=== PATIENT | male | born 1960 | race Caucasian/White ===

== ENCOUNTER 2019-12-10 17:39 | Outpatient (CLI) | payer MEDICARE, MEDICAID, SELFPAY ==
--- NOTE | ~2019-12-10 | CT_ITS ---
EXAMINATION: CT lung screening DATE: 12/10/2019 18:20 INDICATION: Personal history of nicotine dependence. Lung cancer screening. TECHNIQUE: Computed tomography (CT) of the chest was performed without intravenous contrast. The dose -length product was 78.57 mGy-cm. Automated exposure control and iterative reconstruction technique w ere employed. COMPARISON: Chest x-ray dated 06/24/2016 FINDINGS: No mediastinal lymphadenopathy. There is atherosclerosis. Heart size normal. No significant pleural or pericardial effusion. There is moderate-severe emphysema. There are a few small scattered calcified granulomas in the lung parenchyma. There is bilateral lower lobe atelectasis. There is a 3 mm right lower lobe nodule, not clearly calcified, image 94. Mild wedge compression deformities of T 10-T12 vertebra, likely chronic. No osteolytic or osteoblastic lesions are identified. IMPRESSION: 1. Lung-RADS category 2: Benign appearance or behavior. Continue annual screening with noncontrast lo w-dose chest CT in 12 months. Reviewed, dictated and finalized at location A. STS' MODEL IMPRESSION: 1. Lung-RADS category 2: Benign appearance or behavior. Continue annual screeni ng with noncontrast low-dose chest CT in 12 months.
== END 2019-12-10 17:40 | disposition home or self-care (01) ==
PROVIDERS: PCP Internal Medicine; Visit Provider Nurse Practitioner
DX: Z09 Encounter for follow-up examination after completed treatment for conditions other than malignant neoplasm (principal); Z12.2 Encounter for screening for malignant neoplasm of respiratory organs; Z87.891 Personal history of nicotine dependence
CPT/HCPCS: G0297

== ENCOUNTER 2019-12-21 10:28 | Outpatient (CLI) | payer MEDICARE, MEDICAID, SELFPAY ==
[2019-12-21 11:02] LABS: Hemoglobin 15.8 g/dL (14.0-18.0); Mean Corpuscular HGB Conc 32.2 g/dl (32-36); Mean Corpuscular Hemoglobin 30.8 pg (26-34); Mean Corpuscular Volume 95.5 fl (80-100); Mean Platelet Volume 9.8 fl (7.4-10.4); Platelet Count Result 301 k/mm3 (150-375); Red Blood Count 5.13 M/mm3 (4.6-6.20); Red Cell Distribution Width 11.9 % (11.5-14.5); White Blood Count 6.8 K/mm3 (4.5-10.0)
[2019-12-21 11:42] LABS: Alanine Aminotransferase 11 U/L (4-50); Albumin Level 4.3 g/dL (3.5-5.1); Alkaline Phosphatase 93 U/L (38-126); Aspartate Amino Transferase 17 U/L (17-59); Bilirubin,Total 0.5 mg/dL (0.2-1.3); Blood Urea Nitrogen 17 mg/dL (9-20); Calcium 9.8 mg/dL (8.4-10.2); Carbon Dioxide 30 mmol/L (22-30); Chloride 97 mmol/L (98-107); Cholesterol 176 mg/dL (0-200); Estimated Glomerular Filt Rate > 60; Glucose 103 mg/dL (75-110); HDL Direct 56 mg/dL; Potassium 4.6 mmol/L (3.4-5.0); Sodium 138 mmol/L (137-145); Triglycerides 120 mg/dL (<150)
[2019-12-21 11:55] LABS: LDL Cholesterol Direct 97 mg/dL
[2019-12-21 12:15] LABS: Free T4 Free Thyroxine 0.83 ng/mL (0.78-2.19)
== END 2019-12-21 10:29 | disposition home or self-care (01) ==
PROVIDERS: PCP Internal Medicine; Visit Provider Nurse Practitioner
DX: I10 Essential (primary) hypertension (principal); Z79.899 Other long term (current) drug therapy; Z12.5 Encounter for screening for malignant neoplasm of prostate
CPT/HCPCS: 36415; 80053; 80061; 84153; 84439; 84443; 85027; G0103

== ENCOUNTER 2020-07-24 15:30 | Outpatient (RCR) | payer MEDICARE, MEDICAID, SELFPAY ==
--- NOTE | 2020-06-26 17:13 | PTOPEVAL ---
PHYSICAL THERAPY EVALUATION AND PLAN OF CARE Thank you for referring Michael Stewart to [facility].? The patient is scheduled to be seen for therapy?2x/week for 4 weeks. Please review, sign, date and return this plan of care BETTIE. I agree with and certify that the following plan of care is medically necessary. Referring Physician Date Attending Provider: Minh Bustillos, DO Evaluation Outpatient Past Medical History Cardiovascular History Hx Hypertension Yes Respiratory History Hx Chronic Obstructive Pulmonary Disease Yes (COPD) Diagnosis bilateral shoulder pain, decreased ROM Onset 8 months ago Subjective Information Don is here today with 8 Query Text:As Reported By Patient/ months worth of pain in the Family left shoulder that is prevneting him from moving the arm very well. The right was hurting, but he was on steriods which helped both shoulders significantly. He has difficulty and pain reaching behind his back and raising the arms out to the side. Has difficulty lying on either shoulder. Self Report Pain Assessment Bilateral Shoulder(s) Reported Pain Level 4 Pain Description Aching,Sharp Pain Frequency Chronic,Continuous Lowest Pain Intensity 2 Scapular/ Shoulder Range of Motion Left Shoulder Flexion - Active 132 Shoulder Abduction - Active 80 Shoulder Medial Rotation - Active left PSIS Query Text:Reach Behind the Back Scapular/Shoulder Range of Motion Bony Restriction,Muscle Length Limitations Restriction Right Shoulder Flexion - Active 137 Shoulder Abduction - Active 70 Shoulder Medial Rotation - Active sacrum Query Text:Reach Behind the Back Scapular/Shoulder Range of Motion Bony Restriction,Muscle Length Limitations Restriction Scapular/Shoulder Bilateral Shoulder Flexion Strength 3 Fair Shoulder Abduction Strength 3- Fair - Shoulder Medial Rotation Strength 4- Good - Shoulder Lateral Rotation Strength 3+ Fair + Shoulder Strength Comments left shoulder more tender to internal rotation and ext. rot . MMT; right shoulder more tender to flexion and abduction MMT. Posture Head/C-Spine Posture Forward Head Thoracic Spine Posture Increased Kyphosis Thorax Posture Barrel Chested Lumbar
--- NOTE | 2020-07-05 10:20 | PCPTNOTE ---
Patient called & cancelled scheduled appointment this date due to car not working.
--- NOTE | 2020-07-13 11:28 | PCPTNOTE ---
Patient called & cancelled scheduled appointment this date due to illness.
--- NOTE | 2020-07-24 15:46 | PTOPEVAL ---
PHYSICAL THERAPY DISCHARGE NOTE Thank you for referring Michael Stewart to [facility].? Please review, sign, date and return this plan of care BETTIE. I agree with and certify that the following plan of care is medically necessary. Referring Physician Date Attending Provider: Minh Bustillos, Discharge Diagnosis bilateral shoulder pain, decreased ROM Onset 8 months ago Subjective Information Abilio reports today that his Query Text:As Reported By Patient/ shoulder pain is 90% gone. It Family only hurts when he moves it the wrong way or jerks the shoulders. Self Report Pain Assessment Bilateral Shoulder(s) Reported Pain Level 2 Pain Description Aching Pain Frequency Chronic,Continuous Scapular/ Shoulder Range of Motion Left Shoulder Flexion - Active 162 Shoulder Abduction - Active 170 Shoulder Medial Rotation - Active L1 Query Text:Reach Behind the Back Scapular/Shoulder Range of Motion Bony Restriction,Muscle Length Limitations Restriction Right Shoulder Flexion - Active 156 Shoulder Abduction - Active 165 Shoulder Medial Rotation - Active L1 Query Text:Reach Behind the Back Scapular/Shoulder Range of Motion Bony Restriction,Muscle Length Limitations Restriction Upper Extremity Muscle Strength Testing Scapular/Shoulder Bilateral Shoulder Flexion Strength 4+ Good + Shoulder Abduction Strength 4- Good - Shoulder Medial Rotation Strength 4+ Good + Shoulder Lateral Rotation Strength 4+ Good + Shoulder Strength Comments reports a small twinge with MMT, but not bad Posture Sitting Position Posture Evaluation View Anterior Head/C-Spine Posture Forward Head Thoracic Spine Posture Increased Kyphosis Thorax Posture Barrel Chested Lumbar Spine Posture Flexed Shoulder Posture (L) Rounded,(R) Rounded,(L) Elevated,(R) Elevated Scapula Posture (L) Neutral,(R) Neutral Additional Posture Comments better able to sit up right without UE support indicating improved postural strength PT Clinical Summary Michael is a 59 yo male participating in outpatient physical therapy with bilateral shoulder pain. Today Abilio presents WNL bilateral shoulder ROM and improved functional ability. His strength is also significantly
== END 2020-07-25 14:22 | disposition home or self-care (01) ==
LOC: ANHPT 15:30
PROVIDERS: PCP Internal Medicine; Visit Provider Internal Medicine
DX: M25.511 Pain in right shoulder (principal); M25.512 Pain in left shoulder
CPT/HCPCS: 97110; 97140; 97161

== ENCOUNTER 2021-04-14 09:33 | Outpatient (CLI) | payer MEDICARE, MEDICAID, SELFPAY ==
[2021-04-14 10:05] LABS: Alanine Aminotransferase 11 U/L (4-50); Alkaline Phosphatase 84 U/L (38-126); Anion Gap 6 mmol/L (8-16); Aspartate Amino Transferase 20 U/L (17-59); Bilirubin,Total 0.4 mg/dL (0.2-1.3); Blood Urea Nitrogen 14 mg/dL (9-20); Calcium 9.3 mg/dL (8.4-10.2); Carbon Dioxide 32 mmol/L (22-30); Chloride 101 mmol/L (98-107); Cholesterol 191 mg/dL (0-200); Estimated Glomerular Filt Rate > 60; Glucose 102 mg/dL (75-110); HDL Direct 69 mg/dL; Potassium 4.5 mmol/L (3.4-5.0); Sodium 139 mmol/L (137-145); Triglycerides 91 mg/dL (<150)
[2021-04-14 10:16] LABS: LDL Cholesterol Direct 86 mg/dL
== END 2021-04-14 09:34 | disposition home or self-care (01) ==
PROVIDERS: PCP Internal Medicine; Visit Provider Nurse Practitioner
DX: Z13.6 Encounter for screening for cardiovascular disorders (principal); F32.9 Major depressive disorder, single episode, unspecified; Z13.220 Encounter for screening for lipoid disorders
CPT/HCPCS: 36415; 80053; 80061; 84443

== ENCOUNTER 2021-11-05 16:47 | Outpatient (CLI) | payer OTHER, SELFPAY ==
[2021-11-05 18:47] LABS: Alanine Aminotransferase 13 U/L (4-50); Albumin Level 4.3 g/dL (3.5-5.1); Alkaline Phosphatase 96 U/L (38-126); Anion Gap 7 mmol/L (8-16); Aspartate Amino Transferase 20 U/L (17-59); Bilirubin,Total 0.4 mg/dL (0.2-1.3); Blood Urea Nitrogen 16 mg/dL (9-20); Calcium 9.5 mg/dL (8.4-10.2); Carbon Dioxide 31 mmol/L (22-30); Chloride 96 mmol/L (98-107); Estimated Glomerular Filt Rate > 60; Glucose 108 mg/dL (65-110); Potassium 4.7 mmol/L (3.4-5.0); Sodium 134 mmol/L (137-145)
[2021-11-05 19:17] LABS: Prostate Specific Antigen 8.2 ng/mL (< OR = 4.0)
== END 2021-11-05 16:48 | disposition home or self-care (01) ==
PROVIDERS: PCP Internal Medicine; Visit Provider Nurse Practitioner
DX: I10 Essential (primary) hypertension (principal); Z12.5 Encounter for screening for malignant neoplasm of prostate
CPT/HCPCS: 36415; 80053; 84153; G0103

== ENCOUNTER 2022-04-03 14:09 | Outpatient (CLI) | payer OTHER, SELFPAY ==
--- NOTE | ~2022-04-03 | CT_ITS ---
EXAMINATION:CT lung screening DATE: 04/03/2022 14:26 INDICATION: Personal history of nicotine dependence. Current smoker with 47 pack year history. TECHNIQUE: Computed tomography (CT) of the chest was performed without intravenous contrast. Automate d exposure control and iterative reconstruction technique were employed. The dose-length product (DLP ) was 73.53 mGy-cm. COMPARISON: Chest CT 12/10/2019 FINDINGS: There is severe emphysema. Calcified bilateral lung nodules and calcified right hilar lymph nodes are consistent with old granulomatous disease. No pleural effusion. The heart size is normal. There are coronary artery calcifications. No pericardial effusion. There is mild atrophy of left kidn ey. There is a chronic compression fracture of T12. There is mild chronic anterior wedging of multipl e vertebral bodies. IMPRESSION: 1. Lung-RADS category 1: Negative. Continue annual screening with noncontrast low-dose chest CT in 12 months. Reviewed, dictated and finalized at location A. IMPRESSION: 1. Lung-RADS category 1: Negative. Continue annual screening with noncontrast l ow-dose chest CT in 12 months.
== END 2022-04-03 14:10 | disposition home or self-care (01) ==
PROVIDERS: PCP Internal Medicine; Visit Provider Internal Medicine
DX: Z12.2 Encounter for screening for malignant neoplasm of respiratory organs (principal); Z87.891 Personal history of nicotine dependence
CPT/HCPCS: 71271

== ENCOUNTER 2022-06-27 10:48 | Outpatient (CLI) | payer OTHER, SELFPAY ==
[2022-06-27 11:23] LABS: Alanine Aminotransferase 14 U/L (6-50); Albumin Level 4.3 g/dL (3.5-5.1); Alkaline Phosphatase 95 U/L (38-126); Anion Gap 9 mmol/L (8-16); Aspartate Amino Transferase 19 U/L (17-59); Bilirubin,Total 0.4 mg/dL (0.2-1.3); Blood Urea Nitrogen 20 mg/dL (9-20); Calcium 9.5 mg/dL (8.4-10.2); Carbon Dioxide 31 mmol/L (22-30); Chloride 95 mmol/L (98-107); Cholesterol 187 mg/dL (0-200); Estimated Glomerular Filt Rate 51; Glucose 94 mg/dL (65-110); HDL Direct 63 mg/dL; Potassium 4.5 mmol/L (3.4-5.0); Sodium 135 mmol/L (137-145); Triglycerides 132 mg/dL (<150)
[2022-06-27 11:34] LABS: LDL Cholesterol Direct 93 mg/dL
== END 2022-06-27 10:49 | disposition home or self-care (01) ==
PROVIDERS: PCP Internal Medicine; Visit Provider Internal Medicine
DX: I10 Essential (primary) hypertension (principal); Z79.899 Other long term (current) drug therapy; Z13.220 Encounter for screening for lipoid disorders
CPT/HCPCS: 36415; 80053; 80061

== ENCOUNTER 2022-10-14 05:38 | Inpatient (IN) | payer OTHER, SELFPAY ==
[2022-10-14] VITALS (24 sets, daily range): BP systolic 108–201; BP diastolic 71–114; PULSE 60–104; RESP 14–116; TEMP 36.4–37.2; O2SAT 89–98; BMI 18.5
--- NOTE | ~2022-10-14 | XR_ITS ---
EXAMINATION: XR chest 1V portable DATE: 10/14/2022 06:55 INDICATION: Shortness of breath TECHNIQUE: frontal view of the chest was obtained. COMPARISON: Chest radiograph dated 06/24/2016 FINDINGS: Emphysema. New patchy airspace opacities in the right mid to lower lung zones and at the left lung ba se. No pleural effusion or pneumothorax. IMPRESSION: 1. New patchy airspace opacities in the right mid to lower left lower lung zones which could represen t pneumonia or atelectasis. 2. Emphysema. Reviewed, dictated and finalized at location A. HERIZATION TECHNICIAN IMPRESSION: 1. New patchy airspace opacities in the right mid to lower left lower lung zone s which could represent pneumonia or atelectasis. 2. Emphysema.
--- NOTE | 2022-10-14 05:50 | ECG_ITS ---
Measurements Intervals [place] Rate: 94 P: 150 SD: 131 QRS: -27 QRSD: 69 T: 149 QT: 328 QTc: 411 Interpretive Statements POSSIBLE ECTOPIC ATRIAL RHYTHM LEFT ATRIAL ENLARGEMENT [-0.15mV P-WAVE IN V1/V2] LEAD II MALFUNCTION MODERATE T-WAVE ABNORMALITY, CONSIDER LATERAL ISCHEMIA [-0.1+ mV T-WAVE IN I/aVL/V5/V6] NO PREVIOUS ECG AVAILABLE FOR COMPARISON Electronically Signed On 10-14-2022 11:27:48 PROFESSOR OF PSYCHOLOGY by Oracio Aguila M.D.
--- NOTE | 2022-10-14 05:52 | ED.GENADULT ---
HPI - General Adult General Chief complaint: Shortness of Breath/Dyspnea Stated complaint: SOB Time Seen by Provider: 10/14/22 05:46 History of Present Illness HPI narrative: Patient 62-year-old gentleman who presents to Emergency Department with a chief complaint of shortness of breath. Patient reports he has history of COPD but has not required oxygen therapy at home and reports no prior intubations the patient states that over the last several days has been having increasing shortness of breath cough that has been productive of white sputum. The patient reports that a another individual in the household is tested positive on Friday for COVID-19. Patient reports has been wheezing a lot and reports that tonight things got significantly worse and he called EMS. Patient was found to be hypoxic and required oxygen therapy as well as breathing treatments and received 125 mg of Solu-Medrol enroute to the emergency department Related Data Allergies Allergy/AdvReac Type Severity Reaction Status Date / Time No Known Allergies Allergy Verified 10/14/22 05:43 Review of Systems Review of Systems: A 10 system review of systems was completed on the patient and is negative except for what is stated in the HPI. Nursing and ancillary documentation was reviewed. [facility] Past Medical History Medical History Enlarged prostate Screening for cardiovascular condition Screening for colon cancer Screening for lipid disorders Family History Family History Mother Diabetes mellitus Family history of multiple sclerosis Hypertension Family history of diabetes mellitus in first degree relative Father Family history of primary malignant neoplasm of liver Patient's father is Sibling Hypertension Family history of chronic obstructive pulmonary disease Social History Social History Smoking packs per day: 0.5 Smoking cigarettes per day: 10.0 Years smoked: 40 Smoking pack-years: 20.00 Smoking status: Current every day smoker (Less than 1/2 ppd) Tobacco type: cigarettes Second hand tobacco smoke exposure: Yes Alcohol intake: never Substance use: current Substance use type: marijuana Exam Narrative: GENERAL: Well-appearing, well-nourished, and in no acute distress. HEAD: Normocephalic, atraumatic. EYES: PERRLA and EOMI. ENT: Nares clear, no rhinorrhea or epistaxis. Mucous membranes moist. NECK: Supple. CHEST: Wheezes to auscultation. No respiratory distress. Currently on nasal cannula oxygen HEART: Regular rate and rhythm. No murmur heard. Normal peripheral pulses. ABDOMEN: Soft, nontender, nondistended, normal active bowel sounds. EXTREMITIES: Normal range of motion. No edema. SKIN: Warm, dry, no rash. NEURO: No focal deficits. Alert and oriented x3. PSYCH: Normal mood and affect. Course Course Emergency Course: The patient reports he is feeling much better after receiving the steroids and breathing treatment by EMS. Currently the patient is still on nasal cannula oxygen. Vital Signs Vital signs: Vital Signs Temperature 37.1 C 10/14/22 05:38 Pulse Rate 104 H 10/14/22 05:38 Respiratory Rate 26 H 10/14/22 05:38 Blood Pressure 201/114 H 10/14/22 05:38 Pulse Oximetry 93 10/14/22 05:38 Oxygen Delivery Room Air 10/14/22 05:38 Temperature 37.1 C 10/14/22 05:38 Pulse Rate 97 10/14/22 05:44 Respiratory Rate 26 H 10/14/22 05:38 Blood Pressure 201/114 H 10/14/22 05:38 Pulse Oximetry 92 10/14/22 05:44 Oxygen Delivery Room Air 10/14/22 05:44 Medical Decision Making Vital Signs Vital Signs: Vital Signs Temperature 37.1 C 10/14/22 05:38 Pulse Rate 104 H 10/14/22 05:38 Respiratory Rate 26 H 10/14/22 05:38 Blood Pressure 201/114 H 10/14/22 05:38 Pulse Oxim
[2022-10-14 06:16] LABS: Basophils Absolute Auto 0.1 K/mm3 (0.0-0.1); Basophils Percent Auto 0.8 % (0.2-1.2); Eosinophils Absolute Auto 0.1 K/mm3 (0-0.3); Eosinophils Percent Auto 1.3 % (0-4.4); Hematocrit 47.3 % (42.0-52.0); Hemoglobin 14.9 g/dL (14.0-18.0); Immature Granulocyte Absolute 0.03 K/mm3 (0.00-0.031); Immature Granulocyte Percent A 0.4 % (0-0.5); Lymphocytes Absolute Auto 1.45 K/mm3 (0.9-3.2); Lymphocytes Percent Auto 18.6 % (18.3-44.2); Mean Corpuscular HGB Conc 31.5 g/dl (32-36); Mean Corpuscular Hemoglobin 30.3 pg (26-34); Mean Corpuscular Volume 96.3 fl (80-100); Mean Platelet Volume 9.3 fl (7.4-10.4); Monocytes Absolute Auto 0.8 K/mm3 (0.1-0.6); Monocytes Percent Auto 10.5 % (2.6-8.5); Neutrophils Absolute Auto 5.4 K/mm3 (1.3-6.7); Neutrophils Percent Auto 68.4 % (45.5-73.1); Platelet Count Result 320 k/mm3 (150-375); Red Blood Count 4.91 M/mm3 (4.6-6.20); Red Cell Distribution Width 12.8 % (11.5-14.5); White Blood Count 7.8 K/mm3 (4.5-10.0)
[2022-10-14] MEDS: ALBUTEROL SULFATE NEB 2.5 MG/3 ML INH 5 MG INHALATION ×4 (06:16→20:11)
[2022-10-14] MEDS: IPRATROPIUM BR 0.02% INH SOLN 0.5 MG/2.5 ML VIAL INHALATION ×4 (06:17→20:12)
[2022-10-14 06:25] LABS: Alanine Aminotransferase 15 U/L (6-50); Albumin Level 4.1 g/dL (3.5-5.1); Alkaline Phosphatase 104 U/L (38-126); Anion Gap 7 mmol/L (8-16); Aspartate Amino Transferase 20 U/L (17-59); Bilirubin,Total 0.3 mg/dL (0.2-1.3); Blood Urea Nitrogen 18 mg/dL (9-20); Calcium 9.2 mg/dL (8.4-10.2); Carbon Dioxide 33 mmol/L (22-30); Chloride 96 mmol/L (98-107); Estimated CRCL calculation 45 ml/min; Estimated Glomerular Filt Rate > 60; Glucose 126 mg/dL (65-110); Magnesium 1.8 mg/dL (1.6-2.3); Potassium 5.3 mmol/L (3.4-5.0); Prothrombin Time 12.6 Seconds (11.1-14.7); Sodium 136 mmol/L (137-145)
[2022-10-14 06:36] LABS: NT Pro B Type Natriuretic Pept 111 pg/mL (5-100); Troponin I < 0.012 ng/mL (0.000-0.034)
[2022-10-14 06:43] LABS: Appearance Urine Clear (Clear); Bilirubin Urine Negative (Negative); Blood Urine Trace-intact (Negative); Color Urine Yellow (Yellow); Glucose Urine UA Negative (Negative); Ketones Urine Negative (Negative); Leukocyte Esterase Ur Negative LEU/UL (Negative); Nitrate Urine Negative (Negative); Protein Urine Negative (Negative); Specific Grav Ur 1.025 (1.001-1.035)
[2022-10-14 06:46] LABS: Bacteria Urine Trace /hpf; Mucus Urine Rare /lpf; RBC Urine 0-2 /hpf (0-2); Squamous Epithelial Cell Urine Rare /hpf (Few)
[2022-10-14 06:46] LABS: Procalcitonin 0.1 ng/mL
[2022-10-14 06:54] LABS: Influenza A QL RT-PCR Negative (Negative); Influenza B QL RT-PCR Negative (Negative); SARS-CoV-2 RNA PCR Positive
[2022-10-14 07:00] LABS: Add Urine Microscopic? YES
--- NOTE | 2022-10-14 08:12 | PM.IMHP ---
H&P: HPI History of Present Illness Date/Time: 10/14/22 08:12 Chief Complaint: shortness of breath Narrative: Patient 62-year-old gentleman who presents to Emergency Department with a chief complaint of shortness of breath which has been worsening over the past few days.? Patient reports he has history of COPD but has not required oxygen therapy at home and reports no prior intubations the patient states that over the last several days has been having increasing shortness of breath cough that has been productive of white sputum.? The patient reports that a another individual in the household is tested positive on Friday for COVID-19.? Patient reports has been wheezing a lot and reports that tonight things got significantly worse and he called EMS.? Patient was found to be hypoxic and required oxygen therapy as well as breathing treatments and received 125 mg of Solu-Medrol enroute to the emergency department Review of Systems Review of Systems: - CONSTITUTIONAL: Denies weight loss, fever and chills. - HEENT: Denies changes in vision and hearing - RESPIRATORY: Reports SOB and cough. - CV: Denies palpitations and CP. - GI: Denies abdominal pain, nausea, vomiting and diarrhea. - : Denies dysuria and urinary frequency. - MSK: Denies myalgia and joint pain. - SKIN: Denies rash and pruritus. - NEUROLOGICAL: Denies headache and syncope. - PSYCHIATRIC: Denies recent changes in mood. Denies anxiety and depression. [facility] Past Medical History Medical History Enlarged prostate Screening for cardiovascular condition Screening for colon cancer Screening for lipid disorders Family History Family History Mother Diabetes mellitus Family history of multiple sclerosis Hypertension Family history of diabetes mellitus in first degree relative Father Family history of primary malignant neoplasm of liver Patient's father is Sibling Hypertension Family history of chronic obstructive pulmonary disease Social History Social History Smoking packs per day: 0.5 Smoking cigarettes per day: 10.0 Years smoked: 40 Smoking pack-years: 20.00 Smoking status: Current every day smoker Tobacco type: cigarettes Second hand tobacco smoke exposure: Yes Alcohol intake: never Substance use: current Substance use type: marijuana Lack of Transportation: No Lack of Food: Never True Current Housing: I Have Housing Concerned About Future Housing: No Difficulty Paying Gas/Electric Bills: No Difficulty Paying for Meds: No Currently Unemployed: No Education: Trade/Vocational Certificate Difficulty w/ Childcare or Family Care: No Spiritual care concerns: No Meds Home Medications and Allergies Home Medications Medication Instructions Recorded Confirmed Type albuterol sulfate 90 mcg/actuation 2 inh inhalation Q4H PRN shortness 09/20/22 10/14/22 Rx aerosol inhaler (Ventolin HFA) of breath or wheezing #18 grams hydrocodone 10 mg-acetaminophen 1 tablet PO DAILY PRN severe pain 09/29/22 10/14/22 Rx 325 mg tablet #30 tabs lisinopril 30 mg tablet 30 mg PO DAILY #90 tabs 10/08/22 10/14/22 Rx Allergies Allergy/AdvReac Type Severity Reaction Status Date / Time No Known Allergies Allergy Verified 10/14/22 05:43 Vital Signs Vital Signs - 24 hr 10/14/22 05:38 10/14/22 05:44 10/14/22 05:44 Temperature 98.7 F Pulse Rate 104 H 97 Respiratory Rate 26 H Blood Pressure 201/114 H Pulse Oximetry 93 92 Oxygen Delivery Room Air Room Air Oxygen Flow Rate 10/14/22 05:50 10/14/22 06:07 10/14/22 05:48 Temperature Pulse Rate Respiratory Rate 21 H Blood Pressure 175/103 H Pulse Oximetry 93 89 L Oxygen Delivery Nasal Cannula Oxygen Flow Rate 2 10/14/22 06
[2022-10-14 08:15] LABS: Alanine Aminotransferase 14 U/L (6-50); Estimated CRCL calculation 49 ml/min; Estimated Glomerular Filt Rate > 60
[2022-10-14 08:20] LABS: Prothrombin Time 12.9 Seconds (11.1-14.7)
[2022-10-14] MEDS: REMDESIVIR 200 MG/NS 250 ML 200 MG/250 ML BAG 250 MG IVPB (08:21)
--- NOTE | 2022-10-14 09:35 | ADMGEN ---
This patient, Michael Stewart, was admitted to [facility] Surg Room 309-75 3002. Patient/family oriented to hospital policies and general routines including ID bracelet, bed and alarms, visiting hours, pain management, procedures, bathroom and other care routines, personal items, smoking policy, room service/diet, and visiting hours. Information on how to activate the Rapid Response Team has been discussed. Patient/Family are encouraged to report perceived risks to care and to ask questions if they do not understand what they are told or what they should do.
[2022-10-14 09:44] LABS: Troponin I < 0.012 ng/mL (0.000-0.034)
[2022-10-15] VITALS (16 sets, daily range): BP systolic 96–119; BP diastolic 68–76; PULSE 60–86; RESP 14–26; TEMP 36.2–36.9; O2SAT 94–97
[2022-10-15 06:53] LABS: Basophils Percent Auto 0.1 % (0.2-1.2); Hemoglobin 13.3 g/dL (14.0-18.0); Immature Granulocyte Absolute 0.02 K/mm3 (0.00-0.031); Immature Granulocyte Percent A 0.3 % (0-0.5); Lymphocytes Absolute Auto 1.01 K/mm3 (0.9-3.2); Lymphocytes Percent Auto 14.8 % (18.3-44.2); Mean Corpuscular HGB Conc 31.7 g/dl (32-36); Mean Corpuscular Hemoglobin 30.4 pg (26-34); Mean Corpuscular Volume 95.9 fl (80-100); Mean Platelet Volume 9.8 fl (7.4-10.4); Monocytes Absolute Auto 1.1 K/mm3 (0.1-0.6); Monocytes Percent Auto 16.1 % (2.6-8.5); Neutrophils Absolute Auto 4.7 K/mm3 (1.3-6.7); Neutrophils Percent Auto 68.7 % (45.5-73.1); Platelet Count Result 310 k/mm3 (150-375); Red Blood Count 4.38 M/mm3 (4.6-6.20); Red Cell Distribution Width 12.8 % (11.5-14.5); White Blood Count 6.8 K/mm3 (4.5-10.0)
[2022-10-15 07:05] LABS: Alanine Aminotransferase 12 U/L (6-50); Albumin Level 3.5 g/dL (3.5-5.1); Alkaline Phosphatase 77 U/L (38-126); Anion Gap 5 mmol/L (8-16); Aspartate Amino Transferase 17 U/L (17-59); Bilirubin,Total 0.2 mg/dL (0.2-1.3); Blood Urea Nitrogen 22 mg/dL (9-20); Calcium 8.6 mg/dL (8.4-10.2); Carbon Dioxide 31 mmol/L (22-30); Chloride 97 mmol/L (98-107); Estimated CRCL calculation 54 ml/min; Estimated Glomerular Filt Rate > 60; Glucose 86 mg/dL (65-110); Potassium 4.9 mmol/L (3.4-5.0); Sodium 133 mmol/L (137-145)
[2022-10-15 07:21] LABS: Prothrombin Time 12.9 Seconds (11.1-14.7)
[2022-10-15] MEDS: ENOXAPARIN 40 MG/0.4 ML SYRINGE SUB-Q (09:42)
[2022-10-15] MEDS: lisinopriL 10 MG TABLET 30 MG PO (09:43)
[2022-10-15] MEDS: ALBUTEROL SULFATE NEB 2.5 MG/3 ML INH 5 MG INHALATION ×3 (09:45→22:14)
[2022-10-15] MEDS: IPRATROPIUM BR 0.02% INH SOLN 0.5 MG/2.5 ML VIAL INHALATION ×3 (09:45→22:14)
[2022-10-15] MEDS: REMDESIVIR 100 MG/NS 250 ML 100 MG/250 ML BAG 250 MG IVPB (14:00)
--- NOTE | 2022-10-15 14:02 | PM.IMPN ---
Progress Note: A&P Assessment and Plan (1) Acute respiratory failure with hypoxia: Code(s): J96.01 - Acute respiratory failure with hypoxia Status: Acute (2) Pneumonia due to COVID-19 virus: Code(s): U07.1 - COVID-19; J12.82 - Pneumonia due to coronavirus disease 2019 Status: Acute (3) Uncontrolled hypertension: Code(s): I10 - Essential (primary) hypertension Status: Acute Plan #Acute hypoxic respiratory failure: Requiring nasal cannula oxygen supplementation. Likely COPD exacerbation. On Decadron bronchodilator. #Acute COVID pneumonia chest x-ray with bilateral airspace opacities. BNP 111. Procalcitonin 0.1 low. One remdesivir and Decadron On ceftriaxone and azithromycin for possible bacterial pneumonia super added . # hypertension uncontrolled on admission likely stress related currently better. Resume lisinopril and continue to monitor #DVT prophylaxis Lovenox #Code status full code Continue taper oxygen as tolerated. Subjective Date/time seen: 10/15/22 14:02 Interval history: no overnight events. Shortness of breath is improved. No nausea vomiting abdominal pain. Remains on oxygen 2 L by nasal cannula. Review of Systems Review of Systems: All systems reviewed & are unremarkable except as noted in HPI and below Exam Narrative: GENERAL: Well-appearing, well-nourished, and in no acute distress. HEAD: Normocephalic, atraumatic. EYES: PERRLA and EOMI. ENT: Nares clear, no rhinorrhea or epistaxis.? Mucous membranes moist. NECK: Supple. CHEST: Diminished breath sounds bilaterally No respiratory distress.? Currently on nasal cannula oxygen HEART: Regular rate and rhythm.? No murmur heard.? Normal peripheral pulses. ABDOMEN: Soft, nontender, nondistended, normal active bowel sounds. EXTREMITIES: Normal range of motion.? No edema. SKIN: Warm, dry, no rash. NEURO: No focal deficits.? Alert and oriented x3. PSYCH: Normal mood and affect. Objective Data Vital Signs Vital Signs: Vital Signs - 24 hr 10/14/22 16:00 10/14/22 16:00 10/14/22 20:12 Temperature 98.9 F Pulse Rate 60 73 90 Respiratory Rate 16 18 Blood Pressure 121/84 Pulse Oximetry 96 Oxygen Delivery Oxygen Flow Rate 10/14/22 21:44 10/14/22 20:00 10/14/22 20:00 Temperature 97.6 F Pulse Rate 76 85 Respiratory Rate 14 Blood Pressure 108/71 Pulse Oximetry 98 96 Oxygen Delivery Nasal Cannula Oxygen Flow Rate 2 10/15/22 00:00 10/15/22 04:00 10/15/22 05:30 Temperature 97.6 F Pulse Rate 86 71 77 Respiratory Rate 14 Blood Pressure 119/73 Pulse Oximetry 97 Oxygen Delivery Oxygen Flow Rate 10/15/22 09:46 10/15/22 09:46 10/15/22 10:04 Temperature Pulse Rate 68 73 Respiratory Rate 18 18 Blood Pressure Pulse Oximetry 94 Oxygen Delivery Nasal Cannula Oxygen Flow Rate 2 10/15/22 08:00 10/15/22 10:56 10/15/22 12:00 Temperature 97.8 F 98.2 F Pulse Rate 62 73 Respiratory Rate 24 H 24 H Blood Pressure 111/76 96/75 L Pulse Oximetry 94 95 97 Oxygen Delivery Nasal Cannula Oxygen Flow Rate 2 10/15/22 13:35 10/15/22 08:00 10/15/22 12:00 Temperature Pulse Rate 76 79 76 Respiratory Rate 18 Blood Pressure Pulse Oximetry Oxygen Delivery Oxygen Flow Rate 10/15/22 13:49 Temperature Pulse Rate 76 Respiratory Rate 18 Blood Pressure Pulse Oximetry Oxygen Delivery Oxygen Flow Rate Intake/Output Intake/Output: Intake & Output 10/12/22 10/13/22 10/14/22 10/15/22 23:59 23:59 23:59 23:59 Intake Total 670 1170 Output Total 225 600 Balance 445 570 Meds/Results Medications: Active Medications Generic Name Dose Route Start Last Admin Trade Name Freq PRN Reason Stop Dose Admin Hydrocodone Bitart/Acetaminophen 1 tab 10/14/22 15:04 Hydrocodone/Acetaminophen (*Crx) 10-325 Mg Tablet PO DAILY PRN severe pain Albuterol 5 mg 10/14/22 08:00 10/15/22 13:34 Albuterol
[2022-10-15] MEDS: MELATONIN 5 MG TABLET PO (20:50)
[2022-10-16] VITALS (19 sets, daily range): BP systolic 99–125; BP diastolic 54–71; PULSE 52–79; RESP 14–20; TEMP 36.1–36.8; O2SAT 91–98
[2022-10-16] MEDS: ALBUTEROL SULFATE NEB 2.5 MG/3 ML INH 5 MG INHALATION ×4 (02:36→21:28)
[2022-10-16] MEDS: IPRATROPIUM BR 0.02% INH SOLN 0.5 MG/2.5 ML VIAL INHALATION ×4 (02:37→21:28)
--- NOTE | 2022-10-16 08:09 | PM.IMPN ---
Progress Note: A&P Assessment and Plan (1) Acute respiratory failure with hypoxia: Code(s): J96.01 - Acute respiratory failure with hypoxia Status: Acute Assessment and Plan: Secondary to COPD exacerbation, continue dexamethasone and DuoNebs Started on Rocephin and azithromycin October 14 in the ER, continue this for possible bacterial superinfection Wean O2 as tolerated (2) Pneumonia due to COVID-19 virus: Code(s): U07.1 - COVID-19; J12.82 - Pneumonia due to coronavirus disease 2019 Status: Acute Assessment and Plan: Continue dexamethasone, October 14 through October 23, and remdesivir, started on October 15 (3) Uncontrolled hypertension: Code(s): I10 - Essential (primary) hypertension Status: Acute Assessment and Plan: Controlled on home lisinopril (4) Hyponatremia: Code(s): E87.1 - Hypo-osmolality and hyponatremia Status: Acute Assessment and Plan: Mild, monitor Plan DVT prophylaxis with Lovenox GI prophylaxis with Protonix Code status full code Subjective Date/time seen: 10/16/22 08:09 Interval history: No overnight events noted. No chest pain or shortness of breath. No nausea, vomiting or diarrhea. No fevers or chills. Eager to go home soon. Stable on 2 L nasal cannula. Review of Systems Review of Systems: 12 point review of systems was assessed and was negative except as noted in the HPI Exam Narrative: General: No acute distress, alert and oriented per baseline HEENT: Atraumatic, normocephalic, mucous membranes moist CV: Regular rate and rhythm, S1, S2 Lungs: Somewhat diminished at bases, no wheeze Abdomen: Soft, nontender, nondistended Extremities: Normal to inspection Skin: No rashes noted, no lesions or wounds seen Psych: Euthymic, normal affect Objective Data Vital Signs Vital Signs: Vital Signs - 24 hr 10/15/22 09:46 10/15/22 09:46 10/15/22 10:04 Temperature Pulse Rate 68 73 Respiratory Rate 18 18 Blood Pressure Pulse Oximetry 94 Oxygen Delivery Nasal Cannula Oxygen Flow Rate 2 10/15/22 10:56 10/15/22 12:00 10/15/22 13:35 Temperature 97.8 F 98.2 F Pulse Rate 62 73 76 Respiratory Rate 24 H 24 H 18 Blood Pressure 111/76 96/75 L Pulse Oximetry 95 97 Oxygen Delivery Oxygen Flow Rate 10/15/22 12:00 10/15/22 13:49 10/15/22 16:26 Temperature Pulse Rate 76 76 Respiratory Rate 18 Blood Pressure Pulse Oximetry 94 Oxygen Delivery Nasal Cannula Oxygen Flow Rate 1.5 10/15/22 16:00 10/15/22 16:00 10/15/22 21:15 Temperature 97.2 F L 98.4 F Pulse Rate 60 71 69 Respiratory Rate 26 H 14 Blood Pressure 107/68 119/71 Pulse Oximetry 95 94 Oxygen Delivery Oxygen Flow Rate 10/15/22 22:15 10/15/22 22:15 10/15/22 20:50 Temperature Pulse Rate 69 Respiratory Rate 18 Blood Pressure Pulse Oximetry 95 96 Oxygen Delivery Nasal Cannula Nasal Cannula Oxygen Flow Rate 2 2 10/16/22 02:37 10/16/22 03:07 10/15/22 20:00 Temperature Pulse Rate 79 63 80 Respiratory Rate 18 18 Blood Pressure Pulse Oximetry Oxygen Delivery Oxygen Flow Rate 10/16/22 00:00 10/16/22 04:00 10/16/22 05:49 Temperature 96.9 F L Pulse Rate 58 L 71 52 L Respiratory Rate 14 Blood Pressure 113/71 Pulse Oximetry 98 Oxygen Delivery Oxygen Flow Rate Intake/Output Intake/Output: Intake & Output 10/13/22 10/14/22 10/15/22 10/16/22 23:59 23:59 23:59 23:59 Intake Total 920 2880 750 Output Total 225 1300 800 Balance 695 1580 -50 Meds/Results Medications: Active Medications Generic Name Dose Route Start Last Admin Trade Name Freq PRN Reason Stop Dose Admin Hydrocodone Bitart/Acetaminophen 1 tab 10/14/22 15:04 Hydrocodone/Acetaminophen (*Crx) 10-325 Mg Tablet PO DAILY PRN severe pain Albuterol 5 mg 10/14/22 08:00 10/16/22 02:36 Albuterol Sulfate Neb 2.5 Mg/3 Ml Inh INHALAT
[2022-10-16] MEDS: ENOXAPARIN 40 MG/0.4 ML SYRINGE SUB-Q (08:43)
[2022-10-16] MEDS: lisinopriL 10 MG TABLET 30 MG PO (08:43)
[2022-10-16 08:56] LABS: Alanine Aminotransferase 18 U/L (6-50); Estimated CRCL calculation 54 ml/min; Estimated Glomerular Filt Rate > 60
[2022-10-16 09:06] LABS: Prothrombin Time 12.6 Seconds (11.1-14.7)
[2022-10-16 09:20] LABS: Basophils Percent Auto 0.2 % (0.2-1.2); Eosinophils Percent Auto 0.3 % (0-4.4); Hematocrit 40.6 % (42.0-52.0); Immature Granulocyte Absolute 0.02 K/mm3 (0.00-0.031); Immature Granulocyte Percent A 0.3 % (0-0.5); Lymphocytes Absolute Auto 1.32 K/mm3 (0.9-3.2); Lymphocytes Percent Auto 22.6 % (18.3-44.2); Mean Corpuscular Hemoglobin 30.6 pg (26-34); Mean Corpuscular Volume 95.5 fl (80-100); Mean Platelet Volume 10.2 fl (7.4-10.4); Monocytes Absolute Auto 0.6 K/mm3 (0.1-0.6); Monocytes Percent Auto 10.1 % (2.6-8.5); Neutrophils Absolute Auto 3.9 K/mm3 (1.3-6.7); Neutrophils Percent Auto 66.5 % (45.5-73.1); Platelet Count Result 310 k/mm3 (150-375); Red Blood Count 4.25 M/mm3 (4.6-6.20); Red Cell Distribution Width 13.2 % (11.5-14.5); White Blood Count 5.8 K/mm3 (4.5-10.0)
[2022-10-16 09:29] LABS: Alanine Aminotransferase 18 U/L (6-50); Albumin Level 3.4 g/dL (3.5-5.1); Alkaline Phosphatase 76 U/L (38-126); Anion Gap 7 mmol/L (8-16); Aspartate Amino Transferase 23 U/L (17-59); Bilirubin,Total 0.2 mg/dL (0.2-1.3); Blood Urea Nitrogen 27 mg/dL (9-20); Calcium 8.7 mg/dL (8.4-10.2); Carbon Dioxide 30 mmol/L (22-30); Chloride 98 mmol/L (98-107); Estimated CRCL calculation 54 ml/min; Estimated Glomerular Filt Rate > 60; Glucose 108 mg/dL (65-110); Potassium 4.1 mmol/L (3.4-5.0); Sodium 135 mmol/L (137-145)
[2022-10-16] MEDS: PANTOPRAZOLE SODIUM IV 40 MG VIAL IV PUSH (10:28)
[2022-10-16] MEDS: REMDESIVIR 100 MG/NS 250 ML 100 MG/250 ML BAG 250 MG IVPB (10:28)
[2022-10-16] MEDS: MELATONIN 5 MG TABLET PO (20:22)
[2022-10-17] VITALS (7 sets, daily range): BP systolic 111–123; BP diastolic 54–79; PULSE 59–88; RESP 16–20; TEMP 36.2–36.4; O2SAT 91–95
[2022-10-17] MEDS: IPRATROPIUM BR 0.02% INH SOLN 0.5 MG/2.5 ML VIAL INHALATION (02:58)
[2022-10-17] MEDS: ALBUTEROL SULFATE NEB 2.5 MG/3 ML INH 5 MG INHALATION (02:58)
[2022-10-17 07:06] LABS: Basophils Percent Auto 0.4 % (0.2-1.2); Eosinophils Percent Auto 0.2 % (0-4.4); Hematocrit 38.3 % (42.0-52.0); Hemoglobin 12.3 g/dL (14.0-18.0); Immature Granulocyte Absolute 0.01 K/mm3 (0.00-0.031); Immature Granulocyte Percent A 0.2 % (0-0.5); Lymphocytes Absolute Auto 1.35 K/mm3 (0.9-3.2); Lymphocytes Percent Auto 25.5 % (18.3-44.2); Mean Corpuscular HGB Conc 32.1 g/dl (32-36); Mean Corpuscular Hemoglobin 29.9 pg (26-34); Mean Corpuscular Volume 93.2 fl (80-100); Mean Platelet Volume 9.9 fl (7.4-10.4); Monocytes Absolute Auto 0.8 K/mm3 (0.1-0.6); Monocytes Percent Auto 14.9 % (2.6-8.5); Neutrophils Absolute Auto 3.1 K/mm3 (1.3-6.7); Neutrophils Percent Auto 58.8 % (45.5-73.1); Platelet Count Result 285 k/mm3 (150-375); Red Blood Count 4.11 M/mm3 (4.6-6.20); Red Cell Distribution Width 13.1 % (11.5-14.5); White Blood Count 5.3 K/mm3 (4.5-10.0)
[2022-10-17 07:19] LABS: Alanine Aminotransferase 31 U/L (6-50); Albumin Level 3.2 g/dL (3.5-5.1); Alkaline Phosphatase 75 U/L (38-126); Anion Gap 3 mmol/L (8-16); Aspartate Amino Transferase 33 U/L (17-59); Bilirubin,Total < 0.1 mg/dL (0.2-1.3); Blood Urea Nitrogen 27 mg/dL (9-20); Calcium 8.2 mg/dL (8.4-10.2); Carbon Dioxide 34 mmol/L (22-30); Chloride 98 mmol/L (98-107); Estimated CRCL calculation 45 ml/min; Estimated Glomerular Filt Rate > 60; Glucose 93 mg/dL (65-110); Potassium 4.2 mmol/L (3.4-5.0); Sodium 135 mmol/L (137-145)
[2022-10-17] MEDS: ENOXAPARIN 40 MG/0.4 ML SYRINGE SUB-Q (08:12)
[2022-10-17] MEDS: PANTOPRAZOLE SODIUM IV 40 MG VIAL IV PUSH (08:12)
[2022-10-17] MEDS: lisinopriL 10 MG TABLET 30 MG PO (08:13)
--- NOTE | 2022-10-17 13:00 | PM.DS ---
DS: Admitting Diagnosis Discharge Date October 17, 2022 Admitting Diagnosis Shortness of breath DS: Discharge Diagnosis Discharge Diagnosis (1) Acute respiratory failure with hypoxia: Code(s): J96.01 - Acute respiratory failure with hypoxia Status: Acute Assessment and Plan: Secondary to COPD exacerbation, continue dexamethasone and DuoNebs Started on Rocephin and azithromycin October 14 in the ER, continue this for possible bacterial superinfection Wean O2 as tolerated (2) Pneumonia due to COVID-19 virus: Code(s): U07.1 - COVID-19; J12.82 - Pneumonia due to coronavirus disease 2018 Status: Acute Assessment and Plan: Continue dexamethasone, October 14 through October 23, and remdesivir, started on October 15 (3) Uncontrolled hypertension: Code(s): I10 - Essential (primary) hypertension Status: Acute Assessment and Plan: Controlled on home lisinopril (4) Hyponatremia: Code(s): E87.1 - Hypo-osmolality and hyponatremia Status: Acute Assessment and Plan: Mild, monitor Plan DVT prophylaxis with Lovenox GI prophylaxis with Protonix Code status full code DS: Summary Hospital Course Hospital Course: 62-year-old gentleman who presents to Emergency Department with a chief complaint of shortness of breath which has been worsening over the past few days.? Patient reports he has history of COPD but has not required oxygen therapy at home and reports no prior intubations the patient states that over the last several days has been having increasing shortness of breath cough that has been productive of white sputum.? The patient reports that a another individual in the household is tested positive on Friday for COVID-19.? Patient reports has been wheezing a lot and reports that tonight things got significantly worse and he called EMS.? Patient was found to be hypoxic and required oxygen therapy as well as breathing treatments and received 125 mg of Solu-Medrol en route to the emergency department. Patient was treated for community-acquired pneumonia with Rocephin azithromycin and given Decadron for COVID. He also received 3 days of remdesivir. He was able to be weaned off oxygen. Home O2 eval was performed and he did not require oxygen with exertion either. Symptoms essentially resolved, he was discharged in good condition. See [facility] rec for details. Time Spent with Patient Time attestation: Total time spent providing and/or coordinating discharge services: Exam Narrative: General: No acute distress, alert and oriented per baseline HEENT: Atraumatic, normocephalic, mucous membranes moist CV: Regular rate and rhythm, S1, S2 Lungs: Somewhat diminished at bases, no wheeze Abdomen: Soft, nontender, nondistended Extremities: Normal to inspection Skin: No rashes noted, no lesions or wounds seen Psych: Euthymic, normal affect DS: Data Data Completed and Pending Labs on day of discharge: Labs from last 24 hours 10/17/22 10/17/22 06:26 06:26 WBC 5.3 RBC 4.11 L Hgb 12.3 L Hct 38.3 L MCV 93.2 MCH 29.9 MCHC 32.1 RDW 13.1 Plt Count 285 MPV 9.9 Immature Gran % (Auto) 0.2 Neut % (Auto) 58.8 Lymph % (Auto) 25.5 [place] % (Auto) 14.9 H Eos % (Auto) 0.2 Baso % (Auto) 0.4 Lymph # (Auto) 1.35 [place] # (Auto) 0.8 H Eos # (Auto) 0.0 Baso # (Auto) 0.0 Abs Immat Gran (auto) 0.01 Absolute Neuts (auto) 3.1 Absolute Nucleated RBC 0.0 Nucleated RBC % 0.0 Sodium 135 L Potassium 4.2 Chloride 98 Carbon Dioxide 34 H Anion Gap 3 L BUN 27 H Creatinine 1.20 Estim Creat Clear Calc 45 Estimated GFR > 60 Glucose 93 Calcium 8.2 L Total Bilirubin < 0.1 L AST 33 ALT 31 Alkaline Phosphatase 75 Total Protein 6.0 L Albumin 3.2 L Preliminary micro results at discharge 10/14/22 06:00 Blood Culture - Preliminary Blood 10/14/22 06:04 Blood Culture - Preliminary
[2022-10-17] MEDS: REMDESIVIR 100 MG/NS 250 ML 100 MG/250 ML BAG 250 MG IVPB (13:33)
--- NOTE | 2022-10-17 13:49 | PCRCNOTE ---
HOME O2 EVAL COMPLETE, NO REQUIREMENTS
== END 2022-10-17 16:05 | disposition home or self-care (01) | DRG 177 ==
LOC: ANHED 06:08 → ANH3MEDSUR 07:34
PROVIDERS: Internal Medicine; Admitting Provider Internal Medicine; Emergency Provider Emergency Medicine; PCP Internal Medicine; Visit Provider Student in an Organized Health Care Education/Training Program
DX: U07.1 COVID-19 (principal); J12.82 Pneumonia due to coronavirus disease 2019; J96.01 Acute respiratory failure with hypoxia; J44.1 Chronic obstructive pulmonary disease with (acute) exacerbation; E87.1 Hypo-osmolality and hyponatremia; I10 Essential (primary) hypertension; N40.0 Benign prostatic hyperplasia without lower urinary tract symptoms; F17.210 Nicotine dependence, cigarettes, uncomplicated
CPT/HCPCS: 36415; 71045; 80053; 81001; 82565; 83605; 83735; 83880; 84145; 84460; 84484; 85025; 85610; 85730; 87040; 87636; 93005; 94618; 94640; 96365; 96366; 96368; 96372; 96375; 96376; 99285; A9270; C9113; G0378; J0248; J0456; J0696; J1100; J1650

== ENCOUNTER 2023-03-09 12:07 | Inpatient (IN) | payer OTHER, SELFPAY ==
[2023-03-09] VITALS (17 sets, daily range): BP systolic 131–204; BP diastolic 80–134; PULSE 83–115; RESP 20–39; TEMP 36.1–36.4; O2SAT 88–100; BMI 16.8
--- NOTE | ~2023-03-09 | XR_ITS ---
EXAMINATION: XR chest 1V portable DATE: 03/09/2023 12:39 INDICATION: Shortness of breath TECHNIQUE: frontal view of the chest was obtained. COMPARISON: Chest radiograph dated 10/14/2022 FINDINGS: Emphysema with hyperexpansion lungs and scattered increased lucencies with architectural distortion. Bullous changes at the lateral right lower lung zone with thin curvilinear young. No other airspace o pacities, pulmonary edema, pleural effusion or pneumothorax. The cardiomediastinal silhouette is with in normal limits for AP technique. Atherosclerotic aorta. IMPRESSION: 1. Emphysema. No other acute cardiopulmonary disease. Reviewed, dictated and finalized at location A.
--- NOTE | 2023-03-09 12:08 | ECG_ITS ---
Measurements Intervals [place] Rate: 106 P: 78 MO: 131 QRS: -72 QRSD: 71 T: 59 QT: 314 QTc: 419 Interpretive Statements SINUS TACHYCARDIA ATRIAL PREMATURE COMPLEX POSSIBLE RIGHT ATRIAL ENLARGEMENT POSSIBLE LEFT ATRIAL ENLARGEMENT LEFT ANTERIOR FASCICULAR BLOCK CONSIDER ANTERIOR INFARCT, AGE INDETERMINATE BASELINE ARTIFACT- I, II, III, AVR, AVL, AVF, V1-V6 ABNORMAL ECG COMPARED TO ECG 10/14/2022 05:47:56 SINUS TACHYCARDIA NOW PRESENT LEFT ANTERIOR FASCICULAR BLOCK NOW PRESENT Electronically Signed On 03-10-2023 6:27:07 CDT by James Price D.O.
[2023-03-09] MEDS: methylPREDNISolone SOD SUCC 125 MG VIAL IV PUSH (12:35)
[2023-03-09 12:38] LABS: Basophils Absolute Auto 0.1 K/mm3 (0.0-0.1); Basophils Percent Auto 0.9 % (0.2-1.2); Eosinophils Absolute Auto 0.1 K/mm3 (0-0.3); Hematocrit 54.6 % (42.0-52.0); Hemoglobin 17.5 g/dL (14.0-18.0); Immature Granulocyte Absolute 0.02 K/mm3 (0.00-0.031); Immature Granulocyte Percent A 0.2 % (0-0.5); Lymphocytes Absolute Auto 1.61 K/mm3 (0.9-3.2); Lymphocytes Percent Auto 16.8 % (18.3-44.2); Mean Corpuscular HGB Conc 32.1 g/dl (32-36); Mean Corpuscular Hemoglobin 30.8 pg (26-34); Mean Platelet Volume 9.8 fl (7.4-10.4); Monocytes Absolute Auto 0.6 K/mm3 (0.1-0.6); Monocytes Percent Auto 6.4 % (2.6-8.5); Neutrophils Absolute Auto 7.2 K/mm3 (1.3-6.7); Neutrophils Percent Auto 74.7 % (45.5-73.1); Platelet Count Result 297 k/mm3 (150-375); Red Blood Count 5.69 M/mm3 (4.6-6.20); Red Cell Distribution Width 12.4 % (11.5-14.5); White Blood Count 9.6 K/mm3 (4.5-10.0)
[2023-03-09 12:49] LABS: Alanine Aminotransferase 16 U/L (6-50); Albumin Level 4.5 g/dL (3.5-5.1); Alkaline Phosphatase 108 U/L (38-126); Aspartate Amino Transferase 20 U/L (17-59); Bilirubin,Total 0.6 mg/dL (0.2-1.3); Blood Urea Nitrogen 9 mg/dL (9-20); Calcium 9.8 mg/dL (8.4-10.2); Carbon Dioxide > 40 mmol/L (22-30); Chloride 94 mmol/L (98-107); Estimated CRCL calculation 54 ml/min; Estimated Glomerular Filt Rate > 60; Glucose 136 mg/dL (65-110); Potassium 4.7 mmol/L (3.4-5.0); Sodium 138 mmol/L (137-145)
[2023-03-09] MEDS: ALBUTEROL SULFATE NEB 2.5 MG/3 ML INH 10 MG INHALATION ×2 (13:00→17:30)
[2023-03-09] MEDS: IPRATROPIUM BR 0.02% INH SOLN 0.5 MG/2.5 ML VIAL 1 MG INHALATION (13:00)
--- NOTE | 2023-03-09 13:01 | ED.SOB ---
HPI - SOB/Dyspnea General Chief Complaint: Shortness of Breath/Dyspnea Stated Complaint: SOB Time Seen by Provider: 03/09/23 12:24 Source: patient and RN notes reviewed Mode of arrival: wheelchair Limitations: clinical condition History of Present Illness HPI Narrative: This is a 62 year old smoker with history of COPD who presents for evaluation of shortness of breath. He states he has had shortness of breath for 2 days. He reports mild cough with clear phlegm. He reports left rib pain only with coughing. He denies fever, chills, nausea, vomiting, leg swelling. He has been using his albuterol nebulizer at home. He feels similar to when he has pneumonia in October. Related Data Allergies Allergy/AdvReac Type Severity Reaction Status Date / Time No Known Allergies Allergy Verified 10/14/22 05:43 Review of Systems Constitutional: Constitutional: Denies weakness Cardiovascular: Cardiovascular: Reports chest pain, Denies syncope, Denies rapid heart rate, Denies irregular heart rhythm, Denies leg edema and Reports dyspnea Respiratory: Respiratory: Denies chest congestion, Reports cough, Denies hemoptysis, Denies excessive phlegm production, Reports dyspnea and Reports wheezing Gastrointestinal: Gastrointestinal: Denies abdominal pain, Denies hematochezia, Denies diarrhea and Denies vomiting Genitourinary: Genitourinary: Denies hematuria, Denies dysuria, Denies penile discharge and Denies testicular pain Musculoskeletal: Musculoskeletal: Denies joint swelling, Denies loss of height and Denies muscle weakness Neurologic: Denies syncope, Denies focal weakness and Denies weakness PMFSH Past Medical History Medical History (Updated 03/09/23 @ 20:37 by Marissa Medina MD) Chronic obstructive pulmonary disease, unspecified Depression Diverticulitis Enlarged prostate Episode of moderate major depression Essential (primary) hypertension History of closed fracture Fractured collarbone, fractured arm and fracture Clinic. Screening for cardiovascular condition Screening for colon cancer Screening for lipid disorders Surgical History Surgical History (Updated 03/09/23 @ 16:53 by Vandana Damon NP) H/O colonoscopy with polypectomy History of removal of pigmented skin lesion S/P colon resection S/P peripheral artery angioplasty with stent placement Family History Family History Mother Diabetes mellitus Family history of multiple sclerosis Hypertension Family history of diabetes mellitus in first degree relative Father Family history of primary malignant neoplasm of liver Patient's father is Sibling Hypertension Family history of chronic obstructive pulmonary disease Social History Social History (Updated 03/09/23 @ 16:56 by Vandana Damon NP) Social History: He lives with Nayely Angeles his [employer] girlfreind .He has 2 children . He is disabled. He no longer drinks alcohol. code status full code Smoking packs per day: 0.5 Smoking cigarettes per day: 10.0 Years smoked: 40 Smoking pack-years: 20.00 Smoking status: Current every day smoker Second hand tobacco smoke exposure: Yes Alcohol intake: never Substance use: current Substance use type: marijuana Lack of Transportation: YES Lack of Food: Never True Current Housing: I Have Housing Concerned About Future Housing: No Difficulty Paying Gas/Electric Bills: No Difficulty Paying for Meds: No Currently Unemployed: No Education: Grade School Difficulty w/ Childcare or Family Care: No Spiritual care concerns: No Course Reevaluation(s) Reevaluation #1: Patient states he feels better. He understands that he does not have pneumonia at this time but he will be admitted for COPD exacerbation. Date: 03/09/23 Time: 15:27 Reevaluation #2: I helped patient up to urinate. He states after getting up he is short of breath. Patient h
[2023-03-09 13:06] LABS: NT Pro B Type Natriuretic Pept 297 pg/mL (19.9-100); Troponin I < 0.012 ng/mL (0.000-0.034)
[2023-03-09 13:13] LABS: Lactic Acid Reflex 1.3 mmol/L (0.7-2.0)
[2023-03-09 13:13] LABS: Influenza A QL RT-PCR Negative (Negative); Influenza B QL RT-PCR Negative (Negative); RSV RNA, RT-PCR Negative (Negative); SARS-CoV-2 RNA PCR Negative (Negative)
[2023-03-09 13:19] LABS: Alveolar/Arterial O2 Gradient 98.7 mmHg; Base Excess ABG 4.9 mEq/l (+/-2.0); Carboxyhemoglobin 3.3 % THb (0-2.0); Fractional Inspired Oxygen 48 %; HCO3 ABG 30.8 mEq/l (22.0-26.0); Methemoglobin ABG 0.5 %THb (0-1.5); Oxygen Content ABG 23.2 %vol (16.0-22.0); Oxygen Saturation ABG 99.3 % (95.0-100.0); Oxyhemoglobin 95.3 % THb (90.0-100.0); PCO2 ABG 49.3 mmHg (35.0-45.0); PO2 ABG 187.8 mmHg (80.0-100.0); PO2 FiO2 Ratio Arterial Blood 3.91 %; Reduced Hemoglobin 0.9 %THb (0-5.0); Total Hemoglobin 17.1 g/dL (12.0-18.0); pH ABG 7.414 (7.350-7.450)
[2023-03-09 13:21] LABS: Device NASAL CANNULA; Modified Allen's Test Pass; Site Drawn RIGHT BRACHIAL
[2023-03-09] MEDS: DOXYCYCLINE 100 MG/NS 100 ML 100 MG/100 ML BAG IVPB ×2 (15:17→23:46)
--- NOTE | 2023-03-09 15:32 | PM.IMHP ---
H&P: HPI History of Present Illness Date/Time: 03/09/23 15:32 Chief Complaint: Shortness of breath Narrative: This is a 60-80 8-year-old smoker who has a history of COPD. The patient presented to the emergency room with complaints of shortness of breath. The patient has been short of breath for 2 days and the patient had a mild cough with clear phlegm. He does not typically wear oxygen but is currently on 4 L. he denies any fever chills. No leg swelling. He does use albuterol nebulizer at home. We did have pneumonia in October. BNP is 297. Patient's influenza A/B RSV and COVID are negative. The patient was given Solu-Medrol, doxycycline and a nebulizer treatment. Chest x-ray was read as emphysema. No other acute cardiopulmonary disease. The patient is being admitted to observation status on the date of service of 03/09/2023. Review of Systems Review of Systems: All systems reviewed & are unremarkable except as noted in HPI and below Constitutional: Constitutional: Reports as per HPI and Reports no additional constitutional complaints Eyes: Eyes: Reports as per HPI and Reports no additional eye complaints ENT: Reports system reviewed and no additional complaints, except as documented and Reports Normal hearing present Cardiovascular: Cardiovascular: Reports no additional cardiovascular complaints Respiratory: Respiratory: Reports no additional respiratory complaints and Reports no additional respiratory complaints Gastrointestinal: Gastrointestinal: Reports as per HPI and Reports no additional gastrointestinal complaints Musculoskeletal: Musculoskeletal: Reports no additional musculoskeletal complaints Integumentary/Breasts: Skin/Breast: Reports system reviewed and no additional complaints, except as docu and Reports as per HPI Neurologic: Reports system reviewed and no additional complaints, except as documented, Reports as per HPI and Reports Normal hearing present Psychiatric: Psychiatric: Reports no additional psychiatric complaints and Reports as per HPI Endocrine: Endocrine: Reports no additional endocrine complaints Hematologic/Lymphatic: Hematologic/Lymphatic: Reports no additional hematologic/lymphatic complaints Allergic/Immunologic: Allergic/Immunologic: Reports no additional allergic/immunologic complaints [facility] Past Medical History Medical History (Updated 03/09/23 @ 17:07 by Vandana Damon NP) Chronic obstructive pulmonary disease, unspecified Depression Diverticulitis Enlarged prostate Episode of moderate major depression Essential (primary) hypertension History of closed fracture Fractured collarbone, fractured arm and fracture Clinic. Screening for cardiovascular condition Screening for colon cancer Screening for lipid disorders Surgical History Surgical History (Updated 03/09/23 @ 16:53 by Vandana Damon NP) H/O colonoscopy with polypectomy History of removal of pigmented skin lesion S/P colon resection S/P peripheral artery angioplasty with stent placement Family History Family History Mother Diabetes mellitus Family history of multiple sclerosis Hypertension Family history of diabetes mellitus in first degree relative Father Family history of primary malignant neoplasm of liver Patient's father is Sibling Hypertension Family history of chronic obstructive pulmonary disease Social History Social History (Updated 03/09/23 @ 16:56 by Vandana Damon NP) Social History: He lives with Nayely Angeles his senior living girlfreind .He has 2 children . He is disabled. He no longer drinks alcohol. code status full code Smoking packs per day: 0.5 Smoking cigarettes per day: 10.0 Years smoked: 40 Smoking pack-years: 20.00 Smoking status: Current every day smoker Tobacco type: cigarettes Second hand tobacco smoke exposure: Yes Alcohol intake: never Substance use: current Substance
[2023-03-09] MEDS: methylPREDNISolone SOD SUCC 125 MG VIAL 60 MG IV PUSH ×2 (18:31→23:47)
--- NOTE | 2023-03-09 18:47 | PC.NURSE ---
This patient, Michael Stewart, was admitted to IMU Room 206-02. Patient/family oriented to hospital policies and general routines including ID bracelet, bed and alarms, visiting hours, pain management, procedures, bathroom and other care routines, personal items, smoking policy, room service/diet, and visiting hours. Information on how to activate the Rapid Response Team has been discussed. Patient/Family are encouraged to report perceived risks to care and to ask questions if they do not understand what they are told or what they should do.
[2023-03-09] MEDS: IPRATROPIUM BR 0.02% INH SOLN 0.5 MG/2.5 ML VIAL INHALATION (20:43)
[2023-03-09] MEDS: ALBUTEROL SULFATE NEB 2.5 MG/3 ML INH INHALATION (20:43)
[2023-03-10] VITALS (18 sets, daily range): BP systolic 108–148; BP diastolic 79–98; PULSE 76–113; RESP 15–22; TEMP 36.3–36.7; O2SAT 91–97
[2023-03-10] MEDS: IPRATROPIUM BR 0.02% INH SOLN 0.5 MG/2.5 ML VIAL INHALATION ×4 (03:02→22:02)
[2023-03-10] MEDS: ALBUTEROL SULFATE NEB 2.5 MG/3 ML INH INHALATION ×4 (03:02→22:01)
[2023-03-10 04:50] LABS: Hematocrit 48.5 % (42.0-52.0); Hemoglobin 15.2 g/dL (14.0-18.0); Immature Granulocyte Absolute 0.03 K/mm3 (0.00-0.031); Immature Granulocyte Percent A 0.5 % (0-0.5); Lymphocytes Absolute Auto 0.34 K/mm3 (0.9-3.2); Lymphocytes Percent Auto 5.9 % (18.3-44.2); Mean Corpuscular HGB Conc 31.3 g/dl (32-36); Mean Corpuscular Hemoglobin 30.3 pg (26-34); Mean Corpuscular Volume 96.6 fl (80-100); Mean Platelet Volume 9.9 fl (7.4-10.4); Monocytes Absolute Auto 0.1 K/mm3 (0.1-0.6); Monocytes Percent Auto 1.5 % (2.6-8.5); Neutrophils Absolute Auto 5.4 K/mm3 (1.3-6.7); Neutrophils Percent Auto 92.1 % (45.5-73.1); Platelet Count Result 249 k/mm3 (150-375); Red Blood Count 5.02 M/mm3 (4.6-6.20); Red Cell Distribution Width 12.2 % (11.5-14.5); White Blood Count 5.8 K/mm3 (4.5-10.0)
[2023-03-10 05:07] LABS: Alanine Aminotransferase 16 U/L (6-50); Albumin Level 3.9 g/dL (3.5-5.1); Alkaline Phosphatase 91 U/L (38-126); Aspartate Amino Transferase 17 U/L (17-59); Bilirubin,Total 0.4 mg/dL (0.2-1.3); Blood Urea Nitrogen 19 mg/dL (9-20); Calcium 9.4 mg/dL (8.4-10.2); Carbon Dioxide > 40 mmol/L (22-30); Chloride 94 mmol/L (98-107); Estimated CRCL calculation 49 ml/min; Estimated Glomerular Filt Rate > 60; Glucose 159 mg/dL (65-110); Potassium 4.8 mmol/L (3.4-5.0); Sodium 136 mmol/L (137-145)
[2023-03-10] MEDS: methylPREDNISolone SOD SUCC 125 MG VIAL 60 MG IV PUSH ×4 (06:03→23:33)
[2023-03-10] MEDS: DOXYCYCLINE 100 MG/NS 100 ML 100 MG/100 ML BAG IVPB ×2 (08:55→20:23)
[2023-03-10] MEDS: lisinopriL 10 MG TABLET 30 MG PO (08:56)
--- NOTE | 2023-03-10 12:49 | PC.NURSE ---
This patient, Michael Stewart, was transferred to [331-2 ] on 03/10/23 at 1249. Personal belongings sent with patient. Report given to [SUZY Mcintosh @ [phone] ]. Appropriate documentation sent with patient. Family notified of room change
--- NOTE | 2023-03-10 15:36 | PCCCNOTE ---
On 03/10/23, the student, [Estrellita Montero], provided care and completed [facility] documentation on this patient. I have reviewed the student's documentation and agree with the findings.
--- NOTE | 2023-03-10 16:38 | PM.IMPN ---
Progress Note: A&P Assessment and Plan (1) Acute respiratory failure with hypoxia: Code(s): J96.01 - Acute respiratory failure with hypoxia Status: Acute Assessment and Plan: The patient does not have oxygen at home but is currently on O2 at 4 L per nasal cannula. Prior to being discharged patient would like to have a home O2 evaluation. Home O2 oxygen test was not performed at this time as he has an acute exacerbation of COPD. The patient still continues to smoke 5-6 cigarettes a day. 03/10/2023 interval history: 62-year-old male with history of COPD presented with shortness of breath patient states was not able to ambulate and symptoms worsening, patient is found to have exacerbation of COPD being treated with methylprednisone and bronchodilator, patient is also treated for atypical pneumonia doxycycline, and states his symptoms are improving compared to when he arrived will consult search planner for further recommendation, will have a PT OT evaluate the patient (2) COPD exacerbation: Code(s): J44.1 - Chronic obstructive pulmonary disease with (acute) exacerbation Status: Acute Assessment and Plan: Continue with nebulizer treatments Continue with Solu-Medrol Wean off of oxygen when able he is currently at 4 L per nasal cannula. The patient will need to follow up with search planner as outpatient. (3) Depression: Code(s): F32.9 - Major depressive disorder, single episode, unspecified Status: Acute Assessment and Plan: Continue with current treatment (4) Essential (primary) hypertension: Code(s): I10 - Essential (primary) hypertension Status: Acute Assessment and Plan: Continue with lisinopril (5) Tobacco use disorder, mild, abuse: Code(s): F17.200 - Nicotine dependence, unspecified, uncomplicated Status: Acute Assessment and Plan: I spoke with the patient for approximately 5 minutes regarding smoking cessation. The patient stated that he has been cutting back any sound a 5-6 cigarettes a day. (6) Neuropathy: Code(s): G62.9 - Polyneuropathy, unspecified Status: Acute Assessment and Plan: Continue with current treatment. (7) Benign non-nodular prostatic hyperplasia without lower urinary tract symptoms: Code(s): N40.0 - Benign prostatic hyperplasia without lower urinary tract symptoms Status: Acute Assessment and Plan: Continue with current treatment Subjective Date/time seen: 03/10/23 16:38 Interval history: Shortness of breath HPI-Narrative: This is a 60-80 8-year-old smoker who has a history of COPD.? The patient presented to the emergency room with complaints of shortness of breath.? The patient has been short of breath for 2 days and the patient had a mild cough with clear phlegm.? He does not typically wear oxygen but is currently on 4 L. he denies any fever chills.? No leg swelling.? He does use albuterol nebulizer at home.? We did have pneumonia in October.? BNP is 297.? Patient's influenza A/B RSV and COVID are negative.? The patient was given Solu-Medrol, doxycycline and a nebulizer treatment.? Chest x-ray was read as emphysema.? No other acute cardiopulmonary disease. 03/10/2023 interval history: 62-year-old male with history of COPD presented with shortness of breath patient states was not able to ambulate and symptoms worsening, patient is found to have exacerbation of COPD being treated with methylprednisone and bronchodilator, patient is also treated for atypical pneumonia doxycycline, and states his symptoms are improving compared to when he arrived will consult search planner for further recommendation, will have a PT OT evaluate the patient Review of Systems Review of Systems: All systems reviewed & are unremarkable except as noted in HPI and below Exam Narrative: Appears chronically ill older than his age Patient is comfortable, NAD HEENT: eyes are clear and none icter
[2023-03-11] VITALS (12 sets, daily range): BP systolic 132–143; BP diastolic 77–91; PULSE 71–103; RESP 16–20; TEMP 36–36.8; O2SAT 90–96
[2023-03-11] MEDS: IPRATROPIUM BR 0.02% INH SOLN 0.5 MG/2.5 ML VIAL INHALATION ×4 (02:49→20:50)
[2023-03-11] MEDS: ALBUTEROL SULFATE NEB 2.5 MG/3 ML INH INHALATION ×4 (02:49→20:50)
[2023-03-11 06:17] LABS: Hematocrit 44.3 % (42.0-52.0); Hemoglobin 13.8 g/dL (14.0-18.0); Mean Corpuscular HGB Conc 31.2 g/dl (32-36); Mean Corpuscular Hemoglobin 30.5 pg (26-34); Mean Platelet Volume 10.2 fl (7.4-10.4); Platelet Count Result 239 k/mm3 (150-375); Red Blood Count 4.52 M/mm3 (4.6-6.20); Red Cell Distribution Width 12.7 % (11.5-14.5); White Blood Count 20.3 K/mm3 (4.5-10.0)
[2023-03-11] MEDS: methylPREDNISolone SOD SUCC 125 MG VIAL 60 MG IV PUSH (06:27)
[2023-03-11 06:29] LABS: Anion Gap 1 mmol/L (8-16); Blood Urea Nitrogen 24 mg/dL (9-20); Calcium 8.8 mg/dL (8.4-10.2); Carbon Dioxide 38 mmol/L (22-30); Chloride 95 mmol/L (98-107); Estimated CRCL calculation 56 ml/min; Estimated Glomerular Filt Rate > 60; Glucose 204 mg/dL (65-110); Potassium 4.3 mmol/L (3.4-5.0); Sodium 134 mmol/L (137-145)
--- NOTE | 2023-03-11 07:14 | PM.CNPUL ---
Assessment and Plan Assessment and plan (1) Acute exacerbation of chronic obstructive airways disease: Code(s): J44.1 - Chronic obstructive pulmonary disease with (acute) exacerbation Status: Acute Assessment and Plan: Patient states he was diagnosed with COPD approximately 5 years ago (61 PY currently at 5-6 cig/day), he is on no oxygen. 01/10/2015: Spirometry report with FVC, FEV1, FEV1% DECREASED with impression of severe obstructive ventilatory defect. CT a of the aorta ileal ox and femorals on 06/02/2017 demonstrate paraseptal emphysema in bases. I have a CT scan of the lungs on 12/10/2019 and 04/03/2022 that showed diffuse apical predominant panlobular emphysema. Patient saw coupon redemption clerk once 2-3 months ago and they ordered and home overnight oximetry study and they told him it was low and that he needed a sleep study. They gave him albuterol inhaler and albuterol nebulizers. At baseline patient has an M MRC grade of 4, 1 block dyspnea on exertion and is currently smoking 03/09/2023 patient presented after increasing his cigarette use to 1 and half packs for 2 days with increasing shortness of breath, increased production of clear phlegm, wheezes. A believe this is a COPD exacerbation. 03/11 Today the patient tells me that he is breathing back to his normal. He states that his phlegm is 80% better and his cough is 50% better. When I walked into the room is on 2 L nasal cannula saturations 99%. I decreased him to room air and 25 minutes later his saturations were 90-91%. He has no wheezing on exam. His white blood cell count is 20.3 (likely due to steroids), his creatinine is 0.9. Patient had difficulty sleeping any states that steroids can do this to him. Plan: I will discontinue his Solu-Medrol and place him on prednisone 40 mg p.o. q.day 1st dose today (day 3 of steroids). I will continue nebulized albuterol and ipratropium Q 6 hours. I will continue doxycycline 100 mg q.12 hours (day 3). Patient is having some difficulty expectorating and I will place him on guaifenesin 600 mg p.o. b.i.d.. I have ordered Tessalon Perles 200 mg p.o. t.i.d. p.r.n.. I will order a Cornet flutter valve. I will order an overnight oximetry on room air to see if he qualifies for oxygen at night. I have ordered an echocardiogram to assess his LV, RV and RVSP. I will send an alpha 1 phenotype and level on 03/12/2023. Patient will need a home O2 assessment prior to his discharge. I counseled him on tobacco cessation. The patient is much improved and states he if he continues to improve and remained stable overnight he feels he would be ready for discharge on 03/12/2023. Will follow with you. History of Present Illness History of Present Illness Consult date: 03/11/23 Chief complaint: Acute Respiratory Failure,COPD Exacerbation Narrative: 03/11/2023: This is a new Pulmonary consultation for COPD exacerbation 62-year-old man with a history of hypertension, peripheral vascular disease, COPD. Patient states he was diagnosed with COPD approximately 5 years ago, he is on no oxygen. I have a CT scan of the lungs on 04/03/2022 that showed diffuse apical predominant panlobular emphysema. I have no PFTs. Patient saw coupon redemption clerk once 2-3 months ago and they ordered and home overnight oximetry study and they told him it was low and that he needed a sleep study. They gave him albuterol inhaler and albuterol nebulizers. Patient is a current tobacco user. Started at age 14 and smoked 1 and half packs per day until the last year and which he has cut down to 5-6 cigarettes a day for a total of 62 pack years. Patient smoked marijuana at 1 cigarette a day throughout most of his life and is now doing 1 inhalation 3 times a week. Patient was exposed to secondhand smoke through his father but none since then. 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
--- NOTE | 2023-03-11 08:41 | ECHO_ITS ---
Patient Info Name: Michael Stewart Age: 62 years : 1960 Gender: Male Ht: 69 in Wt: 119 lbs BSA: 1.61 m2 HR: 103 bpm BP: 139 / 91 mmHg Heart Rhythm: Atrial Fibrillation Technical Quality: Fair Exam Date: 03/11/2023 1:02 PM Exam Location: Echo Lab Patient Status: Inpatient Admit Date: 03/10/2023 Staff Ordering Physician: Edward Tellez MD Support Services Tech: Lesley Gowdin RDCS Attending Provider: Madi Rogers MD Referring Physician: Geoff BLAKE; Exam Type: CA echo doppler color flow Study Info Indications - assess LV, RV and RVSP Complete two-dimensional, color flow and Doppler transthoracic echocardiogram is performed. Summary 1. Complete two-dimensional, color flow and Doppler transthoracic echocardiogram is performed. 2. Left ventricular chamber dimension is normal. 3. Left ventricular systolic function is hyperdynamic, estimated at >70%. 4. There is mildly increased left ventricular wall thickness. 5. The left ventricular diastolic function is grade II diastolic dysfunction. 6. Right atrial chamber dimension is mildly enlarged. 7. There is no aortic valve stenosis. 8. There is mild tricuspid valve regurgitation. 9. Mild pulmonary hypertension, estimated pulmonary arterial systolic pressure is 41 mmHg. Left Ventricle Left ventricular chamber dimension is normal. Left ventricular systolic function is hyperdynamic, estimated at >70%. There is mildly increased left ventricular wall thickness. The left ventricular diastolic function is grade II diastolic dysfunction. Right Ventricle Right ventricular chamber dimension is normal. Right ventricular systolic function is normal. Left Atria Left atrial chamber dimension is normal. Right Atria Right atrial chamber dimension is mildly enlarged. Aortic Valve The aortic valve is probable trileaflet. There is no aortic valve stenosis. There is trace aortic valve regurgitation. There is mild aortic valve calcification. Pulmonic Valve The pulmonic valve is not well visualized. There is trace pulmonic regurgitation. Mitral Valve The mitral valve has thickened leaflets. There is trace mitral valve regurgitation. The mitral valve annulus is mildly calcified. Tricuspid Valve The tricuspid valve leaflets are normal. There is mild tricuspid valve regurgitation. Mild pulmonary hypertension, estimated pulmonary arterial systolic pressure is 41 mmHg. Pericardium/Pleural The pericardium appears normal. There is no pericardial effusion. Inferior Vena Cava Normal inferior vena cava with >50% collapse upon inspiration consistent with normal right atrial pressure, 5 mmHg. Aorta The aortic root size at the sinus of Valsalva is normal. There is mild aortic atherosclerosis. Left Ventricular Outflow Tract Name Value Normal LVOT 2D LVOT Diameter 2.2 cm LVOT Doppler LVOT Peak Gradient 7 mmHg LVOT Mean Gradient 3 mmHg LVOT VTI 23 cm LVOT VTI/AV VTI Ratio 0.7 LVOT Stroke Volume 90 ml LVOT CO 10.0 l/min LVOT CI
[2023-03-11] MEDS: DOXYCYCLINE 100 MG/NS 100 ML 100 MG/100 ML BAG IVPB ×2 (09:00→21:28)
[2023-03-11] MEDS: ENOXAPARIN 40 MG/0.4 ML SYRINGE SUB-Q (09:24)
[2023-03-11] MEDS: lisinopriL 10 MG TABLET 30 MG PO (09:24)
[2023-03-11] MEDS: guaiFENesin 12 HR 600 MG TABCR PO ×2 (09:30→21:28)
[2023-03-11] MEDS: predniSONE 20 MG TABLET 40 MG PO (09:30)
[2023-03-11] MEDS: SODIUM CHLORIDE 0.9% IV 100 ML 50 ML (10:00)
--- NOTE | 2023-03-11 13:54 | PM.IMPN ---
Progress Note: A&P Assessment and Plan (1) Acute respiratory failure with hypoxia: Code(s): J96.01 - Acute respiratory failure with hypoxia Status: Acute Assessment and Plan: The patient does not have oxygen at home but is currently on O2 at 4 L per nasal cannula. Prior to being discharged patient would like to have a home O2 evaluation. Home O2 oxygen test was not performed at this time as he has an acute exacerbation of COPD. The patient still continues to smoke 5-6 cigarettes a day. 03/11/2023 interval history: 62-year-old male with history of COPD presented with shortness of breath patient states was not able to ambulate and symptoms worsening, patient is found to have exacerbation of COPD being treated with methylprednisone and bronchodilator, patient is also treated for atypical pneumonia doxycycline, today patient was seen by Dr. Geoff cline and teper methylprednison to prednison 40mg q daily, and added guaifenesin, and states his symptoms are improving compared to when he arrived, will have a PT OT evaluate the patient (2) COPD exacerbation: Code(s): J44.1 - Chronic obstructive pulmonary disease with (acute) exacerbation Status: Acute Assessment and Plan: Continue with nebulizer treatments Continue with Solu-Medrol Wean off of oxygen when able he is currently at 4 L per nasal cannula. The patient will need to follow up with guest relations receptionist as outpatient. (3) Depression: Code(s): F32.9 - Major depressive disorder, single episode, unspecified Status: Acute Assessment and Plan: Continue with current treatment (4) Essential (primary) hypertension: Code(s): I10 - Essential (primary) hypertension Status: Acute Assessment and Plan: Continue with lisinopril (5) Tobacco use disorder, mild, abuse: Code(s): F17.200 - Nicotine dependence, unspecified, uncomplicated Status: Acute Assessment and Plan: I spoke with the patient for approximately 5 minutes regarding smoking cessation. The patient stated that he has been cutting back any sound a 5-6 cigarettes a day. (6) Neuropathy: Code(s): G62.9 - Polyneuropathy, unspecified Status: Acute Assessment and Plan: Continue with current treatment. (7) Benign non-nodular prostatic hyperplasia without lower urinary tract symptoms: Code(s): N40.0 - Benign prostatic hyperplasia without lower urinary tract symptoms Status: Acute Assessment and Plan: Continue with current treatment Subjective Date/time seen: 03/11/23 13:54 Interval history: Shortness of breath HPI-Narrative: This is a 60-80 8-year-old smoker who has a history of COPD.? The patient presented to the emergency room with complaints of shortness of breath.? The patient has been short of breath for 2 days and the patient had a mild cough with clear phlegm.? He does not typically wear oxygen but is currently on 4 L. he denies any fever chills.? No leg swelling.? He does use albuterol nebulizer at home.? We did have pneumonia in October.? BNP is 297.? Patient's influenza A/B RSV and COVID are negative.? The patient was given Solu-Medrol, doxycycline and a nebulizer treatment.? Chest x-ray was read as emphysema.? No other acute cardiopulmonary disease. 03/11/2023 interval history: 62-year-old male with history of COPD presented with shortness of breath patient states was not able to ambulate and symptoms worsening, patient is found to have exacerbation of COPD being treated with methylprednisone and bronchodilator, patient is also treated for atypical pneumonia doxycycline, today patient was seen by Dr. Geoff cline and teper methylprednison to prednison 40mg q daily, and added guaifenesin, and states his symptoms are improving compared to when he arrived, will have a PT OT evaluate the patient Review of Systems Review of Systems: All systems reviewed & are unremarkable except as noted
[2023-03-12] VITALS (11 sets, daily range): BP systolic 155–160; BP diastolic 87–97; PULSE 63–102; RESP 16–20; TEMP 36.1–36.6; O2SAT 86–97
[2023-03-12] MEDS: IPRATROPIUM BR 0.02% INH SOLN 0.5 MG/2.5 ML VIAL INHALATION ×2 (04:30→08:20)
[2023-03-12] MEDS: ALBUTEROL SULFATE NEB 2.5 MG/3 ML INH INHALATION ×2 (04:30→08:20)
--- NOTE | 2023-03-12 05:40 | PCRCNOTE ---
Patient's 0200 updraft treatment was given at 0430 due to pt being on an overnight pulse oximetry study.
[2023-03-12 06:27] LABS: Hemoglobin 14.3 g/dL (14.0-18.0); Mean Corpuscular HGB Conc 30.4 g/dl (32-36); Mean Corpuscular Hemoglobin 30.1 pg (26-34); Mean Corpuscular Volume 98.9 fl (80-100); Mean Platelet Volume 10.2 fl (7.4-10.4); Platelet Count Result 226 k/mm3 (150-375); Red Blood Count 4.75 M/mm3 (4.6-6.20); Red Cell Distribution Width 12.7 % (11.5-14.5)
[2023-03-12 06:52] LABS: Blood Urea Nitrogen 25 mg/dL (9-20); Calcium 8.8 mg/dL (8.4-10.2); Carbon Dioxide > 40 mmol/L (22-30); Chloride 95 mmol/L (98-107); Estimated CRCL calculation 57 ml/min; Estimated Glomerular Filt Rate > 60; Glucose 81 mg/dL (65-110); Potassium 4.4 mmol/L (3.4-5.0); Sodium 137 mmol/L (137-145)
--- NOTE | 2023-03-12 07:58 | PM.PNPUL ---
Progress Note: A&P Assessment and Plan (1) Acute exacerbation of chronic obstructive airways disease: Code(s): J44.1 - Chronic obstructive pulmonary disease with (acute) exacerbation Status: Acute Assessment and Plan: Patient states he was diagnosed with COPD approximately 5 years ago (61 PY currently at 5-6 cig/day), he is on no oxygen. 01/10/2015: Spirometry report with FVC, FEV1, FEV1% DECREASED with impression of severe obstructive ventilatory defect. CT a of the aorta ileal ox and femorals on 06/02/2017 demonstrate paraseptal emphysema in bases. I have a CT scan of the lungs on 12/10/2019 and 04/03/2022 that showed diffuse apical predominant panlobular emphysema. Patient saw pouch maker once 2-3 months ago and they ordered and home overnight oximetry study and they told him it was low and that he needed a sleep study. They gave him albuterol inhaler and albuterol nebulizers. At baseline patient has an M MRC grade of 4, 1 block dyspnea on exertion and is currently smoking 03/09/2023 patient presented after increasing his cigarette use to 1 and half packs for 2 days with increasing shortness of breath, increased production of clear phlegm, wheezes. A believe this is a COPD exacerbation. 03/11 Today the patient tells me that he is breathing back to his normal. He states that his phlegm is 80% better and his cough is 50% better. When I walked into the room is on 2 L nasal cannula saturations 99%. I decreased him to room air and 25 minutes later his saturations were 90-91%. He has no wheezing on exam. His white blood cell count is 20.3 (likely due to steroids), his creatinine is 0.9. Patient had difficulty sleeping any states that steroids can do this to him. Plan: I will discontinue his Solu-Medrol and place him on prednisone 40 mg p.o. q.day 1st dose today (day 3 of steroids). I will continue nebulized albuterol and ipratropium Q 6 hours. I will continue doxycycline 100 mg q.12 hours (day 3). Patient is having some difficulty expectorating and I will place him on guaifenesin 600 mg p.o. b.i.d.. I have ordered Tessalon Perles 200 mg p.o. t.i.d. p.r.n.. I will order a Cornet flutter valve. I will order an overnight oximetry on room air to see if he qualifies for oxygen at night. I have ordered an echocardiogram to assess his LV, RV and RVSP. I will send an alpha 1 phenotype and level on 03/12/2023. Patient will need a home O2 assessment prior to his discharge. I counseled him on tobacco cessation. The patient is much improved and states he if he continues to improve and remained stable overnight he feels he would be ready for discharge on 03/12/2023. 03/12 Today the patient tells me that he is breathing back to his baseline. Patient slept better last night. Phlegm production is back to normal in cough is 90% improved. Patient walked to the bathroom yesterday and did much better. White blood cell count is 15.0, creatinine 0.9. Patient is currently on 2 L nasal cannula oxygen with saturations 100%. Patient had an overnight oximetry on room air with saturations baseline 89%, low saturation 83%, time with saturation less than or equal to 88% was 111 minutes or 30% of the monitored time. Patient's oxygen desaturation index was 2.5. tobacco cessation counseling was provided for 8 minutes. echocardiogram pending. From a pulmonary perspective patient is ready to be discharged on these pulmonary medicines: Prednisone 40 mg PO X 1 day Doxycycline 100 mg p.o. b.i.d. x4 days Beta agonist and muscarinic antagonist that insurance will cover (Anoro Ellipta 62.5/25 at 1 puff Q day, stiolto respimat 2.5/2.5 at 1 puff BID, bevespi aerosphere 9 mcg/4.8 at 2 puffs BID, combivent respimat at 2 puffs Q 4 HR or separate albuterol and atrovent inhalers at 2 puffs Q 4 HR) rescue albuterol 2 puffs q.4 hours p.r.n. shortness of breath or wheezing guaifenesin 1200 mg p.o. b.i.d. oxygen 2 L nasal cannula at when sleeps oxygen at rest and
[2023-03-12] MEDS: ENOXAPARIN 40 MG/0.4 ML SYRINGE SUB-Q (09:33)
[2023-03-12] MEDS: lisinopriL 10 MG TABLET 30 MG PO (09:33)
[2023-03-12] MEDS: predniSONE 20 MG TABLET 40 MG PO (09:34)
[2023-03-12] MEDS: guaiFENesin 12 HR 600 MG TABCR PO (09:35)
--- NOTE | 2023-03-12 10:38 | PM.DS ---
DS: Admitting Diagnosis Discharge Date March 12, 2023 Admitting Diagnosis COPD exacerbation DS: Discharge Diagnosis Discharge Diagnosis (1) Acute respiratory failure with hypoxia: Code(s): J96.01 - Acute respiratory failure with hypoxia Status: Acute Assessment and Plan: Secondary to COPD (2) COPD exacerbation: Code(s): J44.1 - Chronic obstructive pulmonary disease with (acute) exacerbation Status: Acute Assessment and Plan: Continue with nebulizer treatments Continue with Solu-Medrol (3) Depression: Code(s): F32.9 - Major depressive disorder, single episode, unspecified Status: Acute Assessment and Plan: Continue with current treatment (4) Essential (primary) hypertension: Code(s): I10 - Essential (primary) hypertension Status: Acute Assessment and Plan: Continue with lisinopril (5) Tobacco use disorder, mild, abuse: Code(s): F17.200 - Nicotine dependence, unspecified, uncomplicated Status: Acute Assessment and Plan: I spoke with the patient for approximately 5 minutes regarding smoking cessation. The patient stated that he has been cutting back any sound a 5-6 cigarettes a day. (6) Neuropathy: Code(s): G62.9 - Polyneuropathy, unspecified Status: Acute Assessment and Plan: Continue with current treatment. (7) Benign non-nodular prostatic hyperplasia without lower urinary tract symptoms: Code(s): N40.0 - Benign prostatic hyperplasia without lower urinary tract symptoms Status: Acute Assessment and Plan: Continue with current treatment DS: Summary Hospital Course Hospital Course: Admitted for COPD exacerbation. Medications adjusted for pulmonary issues. Follow-up with pulmonology as an outpatient. Home oxygen was set up as well. Time Spent with Patient Time attestation: Total time spent providing and/or coordinating discharge services: Exam Narrative: Appears chronically ill older than his age Patient is comfortable, NAD HEENT: eyes are clear and none icteric LUNGS: Bilateral poor air entry with minimal wheeze HEART: RR S1S2 ABD: Not distended Lower extremities: no edema SKIN: nonjaundiced Neuro: grossly intact. DS: Data Data Completed and Pending Labs on day of discharge: Labs from last 24 hours 03/12/23 05:52 WBC 15.0 H RBC 4.75 Hgb 14.3 Hct 47.0 MCV 98.9 MCH 30.1 MCHC 30.4 L RDW 12.7 Plt Count 226 MPV 10.2 Sodium 137 Potassium 4.4 Chloride 95 L Carbon Dioxide > 40 H Anion Gap BUN 25 H Creatinine 0.90 Estim Creat Clear Calc 57 Estimated GFR > 60 Glucose 81 Calcium 8.8 Edmyc-[id number] Pending Alpha-1-AT Phenotype Pending Preliminary micro results at discharge 03/09/23 12:54 Blood Culture - Preliminary Blood 03/09/23 12:54 Blood Culture - Preliminary Blood Discharge Plan Discharge Attending physician on discharge: Edward Chance Consulting providers: Edward Tellze Discharging Clinician: Edward Chance Patient Disposition: Home, Self-Care Activity: no preference Diet: as tolerated Patient Instructions: Antibiotic Form, How to Stop Smoking (DC), COPD (Chronic Obstructive Pulmonary Disease) (DC), Hypoxia (GEN) Stand Alone Forms: General Discharge Information Follow-up/Referrals: Bertram,Nohelia Lew MD [Primary Care Provider] - Edward Tellez MD [Physician] - Discharge Medications: New guaifenesin 1,200 mg tablet extended release 12hr 1,200 mg PO BID Qty: 60 0RF doxycycline hyclate 100 mg capsule 100 mg PO BID Qty: 8 0RF Atrovent HFA 17 mcg/actuation HFA aerosol inhaler 2 puff inhalation Q4H Qty: 12.9 2RF prednisone 20 mg tablet 40 mg PO DAILY Qty: 2 0RF Continued albuterol sulfate [Ventolin HFA] 90 mcg/actuation HFA aerosol inhaler 2 inh inhalation Q4H PRN (Reason: shortness of breath or wheezing) Qty: 18
--- NOTE | 2023-03-12 12:02 | HOMEO2EVAL ---
Evaluation was performed at [facility] Home Oxygen Evaluation RC: Home Oxygen (O2) Evaluation Start: 03/12/23 07:58 Freq: ONCE Status: Active Protocol: RPE Activity Type Activity Date Activity User E-sign Co-sign Detail Recorded Client Recorded Date Recorded By Document 03/12/23 11:15 [email or web address] [email or web address] 03/12/23 12:01 DJO Document 03/12/23 11:20 [email or web address] [email or web address] 03/12/23 12:01 DJO Document 03/12/23 11:25 [email or web address] [email or web address] 03/12/23 12:01 DJO Document 03/12/23 11:30 [email or web address] [email or web address] 03/12/23 12:01 DJO Document 03/12/23 11:45 [email or web address] [email or web address] 03/12/23 12:01 DJO 03/12/23 03/12/23 03/12/23 11:15 11:20 11:25 Home O2 Evaluation [Oxygen] -Test Phase Resting Exercise Exercise -Oxygen Delivery Room Air Room Air Nasal Cannula -Oxygen Flow Rate (L/min) 1 [Pulse Oximetry] -Pulse Oximetry (90-100 %) 93 86 L 88 L [Pulse Rate] -Pulse Rate (60-100 beats/min) 87 98 102 H [Evaluation] -Activity Tolerance [Charges] -Treatment Charges O2 Evaluation - Inpatient 03/12/23 03/12/23 11:30 11:45 Home O2 Evaluation [Oxygen] -Test Phase Exercise Resting -Oxygen Delivery Nasal Cannula Room Air -Oxygen Flow Rate (L/min) 2 [Pulse Oximetry] -Pulse Oximetry (90-100 %) 91 93 [Pulse Rate] -Pulse Rate (60-100 beats/min) 98 90 [Evaluation] -Activity Tolerance Good [Charges] -Treatment Charges
--- NOTE | 2023-03-12 15:27 | PCRCNOTE ---
HOME O2 EVAL COMPLETE, 2 L WITH ACTIVITY, SET UP WITH [facility]. PHONE NUMBER [phone]. TANK IN ROOM FOR DISCHARGE
[2023-03-19 04:37] LABS: Alpha-1-Antitrypsin, QN 150 mg/dL (83-199)
== END 2023-03-12 16:40 | disposition home or self-care (01) | DRG 189 ==
LOC: ANHED 12:39 → ANHIMU 16:05 → ANH3MEDSUR 03-10 12:47
PROVIDERS: Emergency Medicine; Family Medicine; Internal Medicine Pulmonary Disease; Admitting Provider Internal Medicine; Emergency Provider General Practice; PCP Family Medicine; Visit Provider Chiropractor
DX: J96.01 Acute respiratory failure with hypoxia (principal); J18.9 Pneumonia, unspecified organism; J44.1 Chronic obstructive pulmonary disease with (acute) exacerbation; J44.0 Chronic obstructive pulmonary disease with (acute) lower respiratory infection; K57.30 Diverticulosis of large intestine without perforation or abscess without bleeding; G62.9 Polyneuropathy, unspecified; F17.210 Nicotine dependence, cigarettes, uncomplicated; F32.A Depression, unspecified; Z20.822 Contact with and (suspected) exposure to COVID-19; Z86.010 Personal history of colon polyps; Z95.820 Peripheral vascular angioplasty status with implants and grafts
CPT/HCPCS: 36415; 36600; 71045; 80048; 80053; 82103; 82104; 82375; 82805; 83050; 83605; 83735; 83880; 84484; 85025; 85027; 87040; 87070; 87205; 87637; 93005; 93306; 94618; 94640; 94667; 94762; 96365; 96366; 96375; 96376; 99285; A9270; G0378; J1650; J2930; J7512

== ENCOUNTER 2023-03-25 17:21 | Emergency (ER) | payer OTHER, SELFPAY ==
--- NOTE | ~2023-03-25 | XR_ITS ---
EXAMINATION: XR chest 2V DATE: 03/25/2023 18:07 INDICATION: Shortness of breath and central chest pain. TECHNIQUE: PA and lateral views of the chest were obtained. COMPARISON: Chest radiograph dated 03/09/[address] dated 04/03/2022 FINDINGS: Hyperexpansion of lungs with flattening of the diaphragm and increased lucency with architectural dis tortion in the upper lung zones consistent with emphysema. New opacities in the right mid and lower l ave zones which could represent pneumonia or asymmetric mild pulmonary edema. No pleural effusion or pneumothorax. Heart size is normal. Mild thoracic dextrocurvature. Chronic T12 compression fracture. The cardiomediastinal silhouette is normal. Visualized bones and soft tissues are unremarkable. IMPRESSION: 1. Emphysema with new opacities in the right mid and lower lung zones which could represent pneumonia or mild asymmetric pulmonary edema. Reviewed, dictated and finalized at location A. IMPRESSION: 1. Emphysema with new opacities in the right mid and lower lung zones which cou ld represent pneumonia or mild asymmetric pulmonary edema.
[2023-03-25 17:21] VITALS: BP 159/107; PULSE 112; RESP 20; TEMP 36.7; O2SAT 93
--- NOTE | 2023-03-25 17:24 | ECG_ITS ---
Measurements Intervals Yoder Rate: 111 P: 77 KS: 112 QRS: -81 QRSD: 82 T: 73 QT: 307 QTc: 418 Interpretive Statements SINUS TACHYCARDIA WITH SHORT KS INTERVAL RIGHT ATRIAL ENLARGEMENT INCOMPLETE RIGHT BUNDLE BRANCH BLOCK LEFT ANTERIOR FASCICULAR BLOCK BASELINE ARTIFACT- I, II, III, AVR, AVL, AVF, V1-V6 ABNORMAL ECG COMPARED TO ECG 03/09/2023 12:14:48 NO SIGNIFICANT CHANGES Electronically Signed On 03-25-2023 18:39:59 CDT by James Price D.O.
[2023-03-25 17:44] LABS: Basophils Absolute Auto 0.1 K/mm3 (0.0-0.1); Basophils Percent Auto 0.3 % (0.2-1.2); Eosinophils Percent Auto 0.1 % (0-4.4); Hematocrit 46.3 % (42.0-52.0); Hemoglobin 14.8 g/dL (14.0-18.0); Immature Granulocyte Percent A 0.6 % (0-0.5); Lymphocytes Absolute Auto 1.32 K/mm3 (0.9-3.2); Lymphocytes Percent Auto 7.5 % (18.3-44.2); Mean Corpuscular Hemoglobin 30.5 pg (26-34); Mean Corpuscular Volume 95.5 fl (80-100); Mean Platelet Volume 9.5 fl (7.4-10.4); Monocytes Absolute Auto 1.4 K/mm3 (0.1-0.6); Monocytes Percent Auto 7.7 % (2.6-8.5); Neutrophils Absolute Auto 14.8 K/mm3 (1.3-6.7); Neutrophils Percent Auto 83.8 % (45.5-73.1); Platelet Count Result 269 k/mm3 (150-375); Red Blood Count 4.85 M/mm3 (4.6-6.20); Red Cell Distribution Width 12.9 % (11.5-14.5); White Blood Count 17.7 K/mm3 (4.5-10.0)
[2023-03-25 17:54] LABS: Alanine Aminotransferase 22 U/L (6-50); Alkaline Phosphatase 93 U/L (38-126); Anion Gap 2 mmol/L (8-16); Aspartate Amino Transferase 20 U/L (17-59); Blood Urea Nitrogen 20 mg/dL (9-20); Calcium 9.1 mg/dL (8.4-10.2); Carbon Dioxide 37 mmol/L (22-30); Chloride 96 mmol/L (98-107); Estimated CRCL calculation 49 ml/min; Estimated Glomerular Filt Rate > 60; Glucose 122 mg/dL (65-110); Potassium 4.8 mmol/L (3.4-5.0); Sodium 135 mmol/L (137-145)
[2023-03-25 17:56] LABS: INR 0.9; Prothrombin Time 12.8 Seconds (11.1-14.7)
[2023-03-25 18:21] VITALS: O2SAT 93
[2023-03-25 18:22] VITALS: O2SAT 95
--- NOTE | 2023-03-25 18:39 | ED.SOB ---
HPI - SOB/Dyspnea General Chief Complaint: Shortness of Breath/Dyspnea Stated Complaint: SOB Time Seen by Provider: 03/25/23 18:27 History of Present Illness HPI Narrative: Pt presents with persistent SOB. Pt says he was seen here last week and discharged on antibiotics and one day of prednisone and told not to use nebulizer. Pt says he is still SOB. Pt denies fever or CP. Related Data Allergies Allergy/AdvReac Type Severity Reaction Status Date / Time No Known Allergies Allergy Verified 03/25/23 18:24 Review of Systems Review of Systems: All systems reviewed & are unremarkable except as noted in HPI and below PMFSH Past Medical History Medical History (Updated 03/25/23 @ 18:43 by Bleen Daley III, DO) Chronic obstructive pulmonary disease, unspecified Depression Diverticulitis Enlarged prostate Episode of moderate major depression Essential (primary) hypertension History of closed fracture Fractured collarbone, fractured arm and fracture Clinic. Screening for cardiovascular condition Screening for colon cancer Screening for lipid disorders Surgical History Surgical History (Updated 03/09/23 @ 16:53 by Vandana Damon NP) H/O colonoscopy with polypectomy History of removal of pigmented skin lesion S/P colon resection S/P peripheral artery angioplasty with stent placement Family History Family History Mother Diabetes mellitus Family history of multiple sclerosis Hypertension Family history of diabetes mellitus in first degree relative Father Family history of primary malignant neoplasm of liver Patient's father is Sibling Hypertension Family history of chronic obstructive pulmonary disease Social History Social History (Updated 03/09/23 @ 16:56 by Vandana Damon NP) Social History: He lives with Nayely Angeles his senior care girlfreind .He has 2 children . He is disabled. He no longer drinks alcohol. code status full code Smoking packs per day: 0.5 Smoking cigarettes per day: 10.0 Years smoked: 40 Smoking pack-years: 20.00 Smoking status: Current every day smoker Second hand tobacco smoke exposure: Yes Alcohol intake: never Substance use: current Substance use type: marijuana Lack of Transportation: YES Lack of Food: Never True Current Housing: I Have Housing Concerned About Future Housing: No Difficulty Paying Gas/Electric Bills: No Difficulty Paying for Meds: No Currently Unemployed: No Education: Grade School Difficulty w/ Childcare or Family Care: No Spiritual care concerns: No Exam Const: General: no acute distress and alert Nutritional Appearance: thin Orientation/consciousness: patient oriented x3 Limitations: no limitations Neck: Neck: normal visual inspection Resp: Effort & Inspection: tachypneic Auscultation: diminished lung sounds Cardio: Rate: tachycardic Rhythm: regular rhythm GI: GI Palp: Yes Soft to palpation Auscultation: normal bowel sounds Skin: General skin exam: normal color Neuro: General: patient oriented x3, moves all extremities, no meningeal signs, no focal motor deficits and CN's II-XI intact bilaterally Cranial nerves: Yes Nystagmus not present Speech: normal speech Extrem: General: normal to inspection and no clubbing, cyanosis or edema Psych: Mental Status: mental status grossly normal Affect: normal affect Attitude: cooperative Course Vital Signs Vital signs: Vital Signs Temperature 98.1 F 03/25/23 17:21 Pulse Rate 112 H 03/25/23 17:21 Respiratory Rate 20 03/25/23 17:21 Blood Pressure 159/107 H 03/25/23 17:21 Pulse Oximetry 93 03/25/23 17:21 Oxygen Delivery Room Air 03/25/23 17:21 Temperature 98.1 F 03/25/23 17:21 Pulse Rate 92 03/25/23 19:13 Respiratory Rate 28 H 03/25/23 19:13 Blood Pressure 132/81 03/25/23 19:13 Pulse Oximetry 98 03/25/23 19:13 Oxygen Delivery Ellis
[2023-03-25 18:45] VITALS: PULSE 101; RESP 30
[2023-03-25] MEDS: ALBUTEROL SULFATE NEB 2.5 MG/3 ML INH INHALATION (18:45)
[2023-03-25] MEDS: IPRATROPIUM BR 0.02% INH SOLN 0.5 MG/2.5 ML VIAL INHALATION (18:45)
[2023-03-25 19:13] VITALS: BP 132/81; PULSE 92; RESP 28; O2SAT 98
[2023-03-25 19:14] LABS: NT Pro B Type Natriuretic Pept 149 pg/mL (19.9-100); Troponin I < 0.012 ng/mL (0.000-0.034)
[2023-03-25 19:24] VITALS: BP 132/81; PULSE 90; RESP 29; O2SAT 95
== END 2023-03-25 19:26 | disposition home or self-care (01) ==
LOC: ANHED 18:51
PROVIDERS: Physician Assistant; Emergency Provider Emergency Medicine; PCP Physician Assistant
DX: J44.1 Chronic obstructive pulmonary disease with (acute) exacerbation (principal); I10 Essential (primary) hypertension; N40.0 Benign prostatic hyperplasia without lower urinary tract symptoms; Z95.5 Presence of coronary angioplasty implant and graft; Z90.49 Acquired absence of other specified parts of digestive tract; F17.210 Nicotine dependence, cigarettes, uncomplicated; R00.0 Tachycardia, unspecified; I45.2 Bifascicular block; R94.31 Abnormal electrocardiogram [ECG] [EKG]
CPT/HCPCS: 36415; 71046; 80053; 83880; 84484; 85025; 85610; 93005; 94640; 99284

== ENCOUNTER 2025-07-16 13:58 | Emergency (ER) | payer OTHER, SELFPAY ==
--- OUTSIDE RECORDS SUMMARY | 2025-02-22 09:00 | XMS_ITS ---
Author Organization [facility] Address [address] [place] [address] Care Team Providers Care Tap Builder Name Role Phone Sameer Cuab Primary Care Provider [phone] Adrián Alicea [phone] REASON FOR VISIT f/u Social History Sex Assigned At : Social History Observation Description Sex Assigned At Male Encounters Encounter Location Date Provider Diagnosis [address] [place] [address] 02/22/2025 Adrián Alicea Plan Of Treatment Next Appt Details Provider Name:Adrián Alicea , 07/26/2025 11:20:00 AM, [address] [facility] , [place], [address], Progress Notes * Michael STEWARTDOB: (64 yo M)Acc No.[id number]:02/22/2025 UNLOCKED PROGRESS NOTE Progress Notes Patient: Michael SAMPSON Provider: Leigha Alicea :1960 A ge:64 Y S ex:Male Date:02/22/2025 Address:[address] [facility], [address], [place], [id number] Pcp:Sameer Cuba Subjective: * Chief Complaints: * 1 . F/u. * Medical History: Objective: * Vitals: Assessment: Plan: * Treatment: * * Electronic signature of Hema Alicea , [id number] on 07/16/2025 at 02:00 PM CDT Sign off status: Pending * Provider: Leigha Alicea Date: 0 02/22/2025 Generated for Summer soria/Martha/Emely on: 0 07/16/2025 02:00 PM CDT
--- OUTSIDE RECORDS SUMMARY | 2025-07-08 05:20 | XMS_ITS ---
Author Organization [facility] Address [address] [place] [address] Care Team Providers Care Management Advisor Name Role Phone Sameer Cuba Primary Care Provider Adrián Alicea [phone] REASON FOR VISIT lab Medications Medication SIG (Take, Route, Frequency, Duration) Notes Start Date End Date Status amLODIPine Besylate-Valsartan 5-320 MG 1 tablet Orally Once a day; Duration: 30 days 07/08/2025 Active Umeclidinium-Vilanterol 62.5-25 MCG/ACT INHALE ONE PUFF BY MOUTH EVERY DAY; Duration: 30 Active Ventolin HFA 108 (90 Base) MCG/ACT 1 puff as needed Inhalation every 4 hrs Active Rosuvastatin Calcium 10 MG 1 tab Once a day; Duration: 30 days Active Diclofenac Sodium 50 MG 1 tablet as need ed Orally Twice a day 09/21/2024 Active Social History Sex Assigned At : Social History Observation Description Sex Assigned At Male Encounters Encounter Location Date Provider Diagnosis [facility] [address] [place] [address] 07/08/2025 Adrián Alicea Plan Of Treatment Next Appt Details Provider Name:Adrián Alicea , 07/26/2025 11:20:00 AM, [address], [place], [address], Progress Notes * Michael STEWARTDOB: [birth year] (64 yo M)Acc No.[id number]:07/08/2025 UNLOCKED PROGRESS NOTE Patient: Michael SAMPSON Provider: Leigha Alicea :1960 A ge:64 Y S ex:Male Date:07/08/2025 Address:[address] [place], [place] [id number] Pcp:Sameer Cuba Subjective: * Chief Complaints: * 1 . Lab. * Medical History: * Medications: T aking Diclofenac Sodium 50 MG Tablet Delayed Release 1 tablet as needed Orally Twice a day , Taking Rosuvastatin Calcium 10 MG Tablet 1 tab Once a day , Taking Umeclidinium-Vilanterol 62.5-25 MCG/ACT Aerosol Powder Breath Activated INHALE ONE PUFF BY MOUTH EVERY DAY , Taking Ventolin HFA 108 (90 Base) MCG/ACT Aerosol Solution 1 puff as needed Inhalation every 4 hrs , Taking amLODIPine Besylate-Valsartan 5-320 MG Tablet 1 tablet Orally Once a day Objective: * Vitals: Assessment: Plan: * Treatment: * * Electronic signature of Hema Alicea , [id number] on 07/16/2025 at 02:00 PM CDT Sign off status: Pending * Provider: Leigha Alicea Date: 07/08/2025 Generated for Summer soria/Martha/Emely on: 07/16/2025 02:00 PM CDT
--- NOTE | ~2025-07-16 | XR_ITS ---
EXAMINATION: XR chest 2V DATE: 07/16/2025 15:29 INDICATION: Shortness of breath TECHNIQUE: AP and lateral views of the chest were obtained. COMPARISON: Chest radiograph dated 03/25/2023 FINDINGS: Hyperexpansion lungs with increased lucency and architectural distortion in the upper lung zones consistent with moderate emphysema better appreciated on prior CT. There is some chronic curvilinear atelectasis/scarring/with some bullous change at the right costophrenic angle. No new airspace opacities, pulmonary edema, pleural effusion or pneumothorax. Heart size is normal. Chronic compression fractures at a few of the lower thoracic vertebral bodies. IMPRESSION: 1. Emphysema with mild chronic scarring/with some bullous change at the right costophrenic angle. No acute cardiopulmonary disease. Reviewed, dictated and finalized at location A. IMPRESSION: 1. Emphysema with mild chronic scarring/with some bullous change at the right c ostophrenic angle. No acute cardiopulmonary disease.
[2025-07-16 14:00] VITALS: BP 210/102; PULSE 124; RESP 29; TEMP 37.7; O2SAT 92
--- OUTSIDE RECORDS SUMMARY | 2025-07-16 14:00 | XMS_ITS | Clinical Summary ---
Author Organization [facility] Address [address], [address] [address] Phone Care Team Providers Care Icu Rn Name Role Phone Adrián Alicea MD Primary Care Provider [phone] Allergies No known active allergies Medications polyethylene glycol (MIRALAX) Powder Mix the entire bottle with 64 oz of a clear liquid. Use as directed by the office for colonoscopy prep. 255 g 0 6 Active ALBUTEROL SULFATE HFA IN take 2 Puffs by inhalation every 4 hours as needed. Active tiotropium (SPIRIVA) 18 MCG Capsule take 1 Puff by inhalation daily. Active lisinopril-hydr oCHLOROthiazide (PRINZIDE, ZESTORETIC) 20-12.5 MG Tablet Take 1 Tab by mouth daily. Active Family History Medical History Relation Name Comments Alcohol Abuse Father Diabetes Mother Multiple Sclerosis Mother Relation Name Status Comments Father Mother Social History Tobacco Use Types Packs/Day Years Used Date Smoking Tobacco: Every Day Cigarettes 1 40 Smokeless Tobacco: Never Alcohol Use Standard Drinks/Week Comments No 0 (1 standard drink = 0.6 oz pur e alcohol) Sex and Gender Information Value Date Recorded Sex Assigned at Not on file Legal Sex Male 3:14 PM CDT Gender Identity Not on file Sexual Orientation Not on file Plan of Treatment Health Maintenance Due Date Last Done Comments Hepatitis C Virus (HCV) Screening 1960 TdaP Immunization 1960 Cologuard 2004 Immunochemical Fecal Occult Blood 2004 Pneumococcal Immunization (5 0+ years) (1 of 1 - PCV) 2009 Zoster Immunization (1 of 2) 2009 SARS-COV-2 Immunization (1 - 2024- season) 2024 Influenza Immunization (#1) 2025 Colonoscopy 09/09/2026 09/09/2016 Colorectal Cancer Screening 09/09/2026 Respiratory Syncytial Virus (RSV) Immunization (Adult) (1 - 1-dose 75+ series) 2034 Hepatitis B Immunization Aged Out No longer eligible based on patient's age to complete this topic Human Papillomavirus (HPV) Immunization Aged Out No longer eligible b ased on patient's age to complete this topic Meningococcal Immunization (ACWY) Aged Out No longer eligible based on patient's age to complete this topic Rotavirus Immunization Aged Out No lo nger eligible based on patient's age to complete this topic Procedures Procedure Name Priority Date/Time Associated Diagnosis Comments COLONOSCOPY Routine 09/09/2016 from Last 3 Months or Most Recently Relevant to Health Maintenance Results * COLONOSCOPY (09/09/2016) Adrián Alicea MD PROCEDURE/MINOR SURGICAL ORDER EMMANUELLE Final Result from Last 3 Months or Most Recently Relevant to Health Maintenance Insurance MEDICAID [place] Care Teams Icu Rn Relationship Specialty Start Date End Date Adrián Alicea MD [address] [place] [address] PCP - General Internal Medicine 09/11/16
--- OUTSIDE RECORDS SUMMARY | 2025-07-16 14:00 | XMS_ITS | Patient Health Record ---
Author Organization [facility] Address [address] [place] [address] Care Team Providers Care Specialty Sales Consultant Name Role Phone CubaSimSameer Primary Care Provider Adrián Alicea Unavailable [phone] Allergies No Known Allergies Results Component Value Reference Range Notes CBC/Diff Ambiguous Default Reviewed date:08/25/2024 09:55:11 AM Interpretation: Performing Lab:[facility], [address] [facility], Phone - [phone], Director - Mike Notes/Report: WBC 5.4 3.4-10.8 x10E3/uL RBC 5.07 4.14-5.80 x10E6/uL Hemoglobin 15.4 13.0-17.7 g/dL Hematocrit 47.4 37.5-51.0 % MCV 94 79-97 fL MCH 30.4 26.6-33.0 pg MCHC 32.5 31.5-35.7 g/dL RDW 11.8 11.6-15.4 % Platelets 358 150-450 x10E3/uL Neutrophils 68 Not Estab. % Lymphs 22 Not Estab. % Monocytes 7 Not Estab. % Eos 2 Not Estab. % Basos 1 Not Estab. % Neutrophils (Absolute) 3.6 1.4-7.0 x10E3/uL Lymphs (Absolute) 1.2 0.7-3.1 x10E3/uL Monocytes(Absolute) 0.4 0.1-0.9 x10E3/uL Eos (Absolute) 0.1 0.0-0.4 x10E3/uL Baso (Absolute) 0.1 0.0-0.2 x10E3/uL Immature Granulocytes 0 Not Estab. % Immature Grans (Abs) 0.0 0.0-0.1 x10E3/uL Hematology Comments: A hand-written panel/profile was received from your office. In accordance with the [facility] Ambiguous Test Code Policy dated May 2003, we have assigned CBC with Differential/Platelet, Test Code #846083 to this request. If this is not the testing you wished to receive on this specimen, please contact the [facility] Client Inquiry/ Technical Services Department to clarify the test order. We appreciate your business. Felix Duane PBAON Default Reviewed date:08/25/2024 09:55:11 AM Interpretation: Performing Lab:[address], Phone - [phone], Director - [facility] Notes/Report: Felix Garzagermaine PABON Default A hand-written panel/profile was received from your office. In accordance with the [facility] Ambiguous Test Code Policy dated May 2003, we have completed your order by using the closest currently or formerly recognized AMA panel. We have assigned Lipid Panel, Test Code #456618 to this request. If this is not the testing you wished to receive on this specimen, please contact the [facility] Client Inquiry/Technical Services Department to clarify the test order. We appreciate your business. Prostate-Specific Ag, Serum Reviewed date:08/25/2024 09:55:11 AM Interpretation: Performing Lab:[facility], [address] [place] [address], Phone - [phone], Director - [facility] Notes/Report: Prostate Specific Ag 5.0 0.0-4.0 ng/mL Klaudia ECLIA methodology. . According to the [place] [employer], Serum PSA should decrease and remain at undetectable levels after radical prostatectomy. The AUA defines biochemical recurrence as an initial PSA value 0.2 ng/mL or greater followed by a subsequent confirmatory PSA value 0.2 ng/mL or greater. Values obtained with different assay methods or kits cannot be used interchangeably. Results cannot be interpreted as absolute evidence of the presence or absence of malignant disease. HIV Screen *HIV 1, 2 Ab, p24 Ag (474250) Reviewed date:08/25/2024 09:55:11 AM Interpretation: Performing Lab:[facility] [address] [place] [address], Phone - [phone], Director - [facility] Notes/Report: HIV Ab/p24 Ag Screen Non Reactive Non Reactive HIV-1/HIV-2 antibodies and HIV-1 p24 antigen were NOT detected. There is no laboratory evidence of HIV infection. HIV Negative Lipid Panel* Reviewed date:08/25/2024 09:55:11 AM Interpretation: Performing Lab:[facility] [address] [place] [address], Phone - [phone], Director - [facility] Notes/Report: Cholesterol, Total 162 100-199 mg/dL Triglycerides 104 0-149 mg/dL HDL Cholesterol 65 >39 mg/dL VLDL Cholesterol Sesar 19 5-40 mg/dL LDL Chol Calc ([facility]) 78 0-99 mg/dL TSH Rfx on Abnormal to Free T4 Reviewed date:08/25/2024 09:55:11 AM Interpretation: Performing Lab:[facility] [address] [place] [address], Phone - [phone], Director - [facility] Notes/Report: TSH 1.040 0.450-4.500 uIU/mL Felix Zepeda CMP14 Default A hand-written panel/profile was received from your office. In accordance with the [facility] Ambiguous Test Code Policy dated May 2003, we have completed your order by using the closest currently or formerly recognized AMA panel. We have assigned Comprehensive Metabolic Panel (14), Test Code #732811 to this request. If this is not the testing you wished to receive on this specimen, please contact the [facility] Client Inquiry/Technical Services Department to clarify the test order. We appreciate your business. CMP 14 Comprehensive Metabol ic Panel* Reviewed date:08/25/2024 09:55:11 AM Interpretation: Performing Lab:[facility] [address] [facility], Phone - [phone], Director - [facility] Notes/Report: Glucose 118 70-99 mg/dL BUN 13 8-27 mg/dL Creatinine 1.27 0.76-1.27 mg/dL eGFR 63 >59 mL/min/1.73 BUN/Creatinine Ratio 10 10-24 Sodium 142 134-144 mmol/L Potassium 5.5 3.5-5.2 mmol/L Chloride 95 96-106 mmol/L Carbon Dioxide, Total 29 20-29 mmol/L Calcium 10.4 8.6-10.2 mg/dL Protein, Total 7.4 6.0-8.5 g/dL Albumin 4.7 3.9-4.9 g/dL Globulin, Total 2.7 1.5-4.5 g/dL Bilirubin, Total 0.4 0.0-1.2 mg/dL Alkaline Phosphatase 116 44-121 IU/L AST (SGOT) 19 0-40 IU/L ALT (SGPT) 12 0-44 IU/L Reason For Referral Reason COPD, on Home O2. Diagnosis 1 COPD without exacerb ation (J44.9) Referral Organization [facility] Referring Provider First Name Sameer Referring Provider Last Name Bereket Referring Provider [facility] Referred Provider [facility] [place] Peggy bertrand Pulmonary Medicine Referred Provider Specialty Pulmonology General Notes Cathie Albright RN 09/21/2024 11:38:04 AM >referral faxed. Confirmation pending.Natalee RN, Stephanie N 09/21/2024 02:39:27 PM >referral was successfully faxed. Text message sent and letter mailed with referral details. See logs.Natalee RN, Stephanie N 09/27/2024 04:41:02 PM >[facility] does not currently accept [place] complete. Will seek new provider.Natalee RN, Stephanie N 09/29/2024 02:26:05 PM >Voice message left for [facility] asking for a return call to let us know if they accept the insurance plan.Natalee RN, Stephanie N 09/29/2024 02:26:25 PM >Spoke with Vickie at [facility] who stated they do not accept [place] complete. Also spoke with Mally at [facility] who stated they do not accept [place] Complete.Natalee RN, Stephanie N 09/29/2024 02:28:42 PM >Received a call from Alyssa with Dr. Cancino's office ([facility]). They do accept [place] Complete with a referral from the primary care provider.Natalee RN, Stephanie N 09/29/2024 02:30:46 PM >referral faxed. letter mailed to pt regarding updated referral. Clinical Notes [facility], Pulmonology , [address] [facility] [address], [address], [place] [address], Referral Priority Routine Medications Medication SIG (Take, Route, Frequency, Duration) [...] Twice a day 09/21/2024 Active Social History Tobacco Use: Social History Observation Description Date Details (start date - stop date) Current Smoker NA - NA Sex Assigned At : Social History Observation Description Sex Assigned At Male Tobacco Control (Standard) Question Answer Notes Tobacco use: Current smoker Additional Findings: Tobacco user Light cigarett e smoker (1-9 cigs/day) Problems Problem Type SNOMED Code ICD Code Onset Dates Problem Status W/U Status Risk Notes Problem Tobacco user (536475177) Nicotine dependence, unspecified, uncomplicated (F17.200) Active confirmed Problem Essential hypertension (62077640) Essential hypertension (I10) Active confirmed Problem Hyperlipidaemia (81668003) Hyperlipidemia, unspecified hyperlipidemia type (E78.5) Active confirmed Problem Chronic obstructive lung disease (88506507) COPD without exacerbation (J44.9) Active confirmed Vital Signs Heart Rate 118 /min 07/08/2025 Temperature 97.7 degrees Fahrenheit 07/08/2025 Respiratory Rate 16 /min 07/08/2025 Blood pressure diastolic 102 mm Hg 07/08/2025 Oximetry 91 % 07/08/2025 Height 69 in in 07/08/2025 Blood pressure systolic 184 mm Hg 07/08/2025 Weight 150.2 lbs lbs 07/08/2025 BMI 22.18 kg/m2 07/08/2025 Encounters Encounter Location Date Provider Diagnosis [address] [place] [address] 09/21/2024 Sameer Cuba [address] [address] 07/08/2025 Adrián Alicea [address] [address] 07/23/2024 Sameer Cuba Encounter to [facility] Z76.89 ; COPD without exacerbation J44.9 ; Acute left-sided thoracic back pain M54.6 ; Essential hypertension I10 ; Hyperlipidemia, unspecified hyperlipidemia type E78.5 ; Screening for deficiency anemia Z13.0 ; Screening for metabolic disorder Z13.228 ; Prostate cancer screening Z12.5 ; Screening for HIV (human immunodeficiency virus) Z11.4 and Nicotine dependence, unspecified, uncomplicated F17.[address] [address] 07/23/2024 Sameer Cuba [address] [address] 08/19/2024 Sameer Cuba COPD without exacerbation J44.9 ; Elevated PSA R97.20 and Nicotine dependence, unspecified, uncomplicated F17.[address] [address] 09/21/2024 Sameer Cuba COPD without exacerbation J44.9 ; Essential hypertension I10 ; Generalized osteoarthritis M15.9 and Nicotine dependence, unspecified, uncomplicated F17.[address] [address] 12/02/2024 Sameer Cuba Essential hypertensi on I10 ; COPD without exacerbation J44.9 and Nicotine dependence, unspecified, uncomplicated F17.[address] [address] 01/25/2025 Sameer Cuba Essential hypertensi on I10 ; Generalized osteoarthritis M15.9 ; COPD without exacerbation J44.9 and Nicotine dependence, unspecified, uncomplicated F17.[address] [address] 07/08/2025 Adrián Alicea Essential hypertensi on I10 ; COPD without exacerbation J44.9 ; Hyperlipidemia, unspecified hyperlipidemia type E78.5 ; Elevated PSA R97.20 and Screening for diabetes mellitus Z13.1 [facility] [address] [place] [address] 07/16/2025 Adrián Alicea [address] [address] 08/16/2024 Sameer Cuba [address] [address] 09/15/2024 Sameer Cuba [address] [address] 09/30/2024 Sameer Cuba COPD without exacerbation J44.[address] [address] 11/04/2024 Sameer Cuba Hyperlipidemia, unspecified hyperlipidemia type E78.5 and COPD without exacerbation J44.[address] [address] 11/05/2024 Sameer Cuba [address] [address] 11/25/2024 Sameer Cuba Essential hypertensi on I10 and COPD without exacerbation J44.[address] [address] 11/26/2024 Sameer Cuba [address] [address] 12/29/2024 Sameer Cuba COPD without exacerbation J44.[address] [address] 01/07/2025 Sameer Cuba [address] [address] 01/21/2025 Sameer Cuba Generalized osteoarthritis M15.[address] [place] [address] 02/14/2025 Adrián Fryener COPD without exacerbation J44.[address] [place] [address] 03/28/2025 Adrián Alicea Hyperlipidemia, unspecified hyperlipidemia type E78.[address] [address] 04/18/2025 Adrián Alicea [address] [address] 05/25/2025 Adrián Alicea Essential hypertensi on I10 [facility] [address] [address] 06/28/2025 Adrián Alicea Essential hypertensi on I10 Assessments Encounter Date Diagnosis (ICD Code) Assessment Notes Treatment Notes Treatment Clinical Notes Section Notes 07/08/2025 Essential hypertension (ICD-10 - I10) 01/25/2025 Essential hypertension (ICD-10 - I10) 07/08/2025 COPD without exacerbation (ICD-10 - J44.9) 12/02/2024 Essential hypertension (ICD-10 - I10) Start new medication as prescribed, monitor BP at home. Follow up in 1 month with home log, sooner if readings consistently elevated or if any new symptoms. 12/02/2024 COPD without exacerbation (ICD-10 - J44.9) Continue with pulmonology as scheduled. 12/29/2024 COPD without exacerbation (ICD-10 - J44.9) 01/21/2025 Generalized osteoarthritis (ICD-10 - M15.9) 01/25/2025 Generalized osteoarthritis (ICD-10 - M15.9) 02/14/2025 COPD without exacerbation (ICD-10 - J44.9) 03/28/2025 Hyperlipidemia, unspecified hyperlipidemia type (ICD-10 - E78.5) 05/25/2025 Essential hypertension (ICD-10 - I10) 06/28/2025 Essential hypertension (ICD-10 - I10) 07/23/2024 Encounter to establish care (ICD-10 - Z76.89) 07/23/2024 COPD without exacerbation (ICD-10 - J44.9) 08/19/2024 Elevated PSA (ICD-10 - R97.20) 08/19/2024 COPD without exacerbation (ICD-10 - J44.9) 09/21/2024 Essential hypertension (ICD-10 - I10) 09/21/2024 COPD without exacerbation (ICD-10 - J44.9) Continue home O2, follow with pulmonology. 09/30/2024 COPD without exacerbation (ICD-10 - J44.9) 11/04/2024 Hyperlipidemia, unspecified hyperlipidemia type (ICD-10 - E78.5) 11/25/2024 Essential hypertension (ICD-10 - I10) 11/25/2024 COPD without exacerbation (ICD-10 - J44.9) 12/02/2024 Nicotine dependence, unspecified, uncomplicated (ICD-10 - F17.200) 11/04/2024 COPD without exacerbation (ICD-10 - J44.9) 09/21/2024 Generalized osteoarthritis (ICD-10 - M15.9) 07/23/2024 Acute left-sided thoracic back pain (ICD-10 - M54.6) 08/19/2024 Nicotine dependence, unspecified, uncomplicated (ICD-10 - F17.200) 01/25/2025 COPD without exacerbation (ICD-10 - J44.9) 07/08/2025 Hyperlipidemia, unspecified hyperlipidemia type (ICD-10 - E78.5) 07/08/2025 Elevated PSA (ICD-10 - R97.20) 01/25/2025 Nicotine dependence, unspecified, uncomplicated (ICD-10 - F17.200) 07/23/2024 Essential hypertension (ICD-10 - I10) 09/21/2024 Nicotine dependence, unspecified, uncomplicated (ICD-10 - F17.200) 07/23/2024 Hyperlipidemia, unspecified hyperlipidemia type (ICD-10 - E78.5) 07/23/2024 Screening for deficiency anemia (ICD-10 - Z13.0) 07/08/2025 Screening for diabetes mellitus (ICD-10 - Z13.1) 07/23/2024 Screening for metabolic disorder (ICD-10 - Z13.228) 07/23/2024 Prostate cancer screening (ICD-10 - Z12.5) 07/23/2024 Screening for HIV (human immunodeficiency virus) (ICD-10 - Z11.4) 07/23/2024 Nicotine dependence, unspecified, uncomplicated (ICD-10 - F17.200) Plan Of Treatment Future Test Test Name Order Date Hemoglobin A1c* 07/08/2025 Lipid Panel* 07/08/2025 CMP 14 Comprehensive Metabolic Panel* PSA, Serum (Serial Monitor)* 07/08/2025 Next Appt Details Provider Name:Adrián Vanesa Alicea , 07/26/2025 11:20:00 AM, [address], [place], [address], Insurance Providers Payer Name Payer Address Payer Phone Subscriber Number Group Number Insured Name Patient Relationship to Insured Coverage Start Date Coverage End Date [facility] [place] [address] [phone] [id number] Michael Stewart Self - patient is the insured 4 [facility] Attn Claims Department [address] [place] [address] [phone] [id number] Michael Stewart Self - patient is the insured 4 Medical (General) History Medical History History ICD Code COPD HTN HLD Surgical History Surgery Date(Month/Year) stent in left leg balloon for blood clot in left leg Hospitalization History Reason Date(Month/Year) Covid pneomonia 2021
--- OUTSIDE RECORDS SUMMARY | 2025-07-16 14:00 | XMS_ITS | Encounter Summary ---
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 Historical Provider Final Res ult documented in this encounter Visit Diagnoses Not on filedocumented in this encounter Care Teams Collet Maker Relationship Specialty Start Date End Date Nohelia Burden MD PCP - General Family Medicine 03/10/23 documented as of this encounter
--- OUTSIDE RECORDS SUMMARY | 2025-07-16 14:00 | XMS_ITS | Encounter Summary ---
Author Organization 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 Historical Provider [facility] MARIELENA GUALLPA Final Result documented in this encounter Visit Diagnoses Not on filedocumented in this encounter Care Teams Elementary [employer] Teacher Relationship Specialty Start Date End Date Nohelia Burden MD PCP - General Family Medicine 03/10/23 documented as of this encounter
--- OUTSIDE RECORDS SUMMARY | 2025-07-16 14:00 | XMS_ITS | Encounter Summary ---
Author Organization [facility] Care Team Providers Care Photographic Enlarger Operator Name Role Phone Nohelia Burden MD Primary Care Provider [phone]- [phone] Encounter Details Date Type Department Care Team (Latest Contact Info) Description 06/20/2017 Orders Only [facility] CLINCON[facility] ProviderNadir MD [address] [place] [id number] Social History Tobacco Use Types Packs/Day Years Used Date Smoking Tobacco: Never Assessed Sex and Gender Information Value Date Recorded Sex Assigned at Not on file Legal Sex Male 8:18 PM [employer] Gender Identity Not on file Sexual Orientation Not on file documented as of this encounter Plan of Treatment Not on file documented as of this encounter Procedures Procedure Name Priority Date/Time Associated Diagnosis Comments PROCEDURE - RESULT 06/17/2017 12 :00 AM CDT documented in this encounter Results * PROCEDURE - RESULT (06/17/2017 12:00 AM CDT) Narrative 06/17/2017 12:00 AM CDT Ordered by an unspecified provider. Historical Provider Final Res ult documented in this encounter Visit Diagnoses Not on filedocumented in this encounter Care Teams Photographic Enlarger Operator Relationship Specialty Start Date End Date Nohelia Burden MD PCP - General Family Medicine 03/10/23 documented as of this encounter
--- OUTSIDE RECORDS SUMMARY | 2025-07-16 14:00 | XMS_ITS | Encounter Summary ---
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 Historical Provider Final Res ult documented in this encounter Visit Diagnoses Not on filedocumented in this encounter Care Teams Can Sterilizer Relationship Specialty Start Date End Date Nohelia Burden MD PCP - General Family Medicine 03/10/23 documented as of this encounter
--- NOTE | 2025-07-16 14:04 | ECG_ITS ---
Test Date: 2025-07-16 14:13:16 Measurements Intervals [place] Rate: 110 P: 82 NC: 133 QRS: -57 QRSD: 80 T: 72 QT: 311 QTc: 422 Interpretive Statements SINUS TACHYCARDIA POSSIBLE LEFT ATRIAL ENLARGEMENT [-0.1mV P-WAVE IN V1/V2] LEFT ANTERIOR FASCICULAR BLOCK [QRS AXIS <= -45, QR IN I, RS IN II] No previous ECG available for comparison Electronically Signed On 07-17-2025 15:47:13 CDT by Tenzin Camargo M.D.
[2025-07-16 14:27] VITALS: BP 164/90; PULSE 110; RESP 25; O2SAT 96
--- NOTE | 2025-07-16 14:37 | ED_ITS ---
HPI - General Adult General Chief complaint: Recheck/Abnormal Lab/Rx Stated complaint: critical high K Time Seen by Provider: 07/16/25 14:32 History of Present Illness HPI narrative: Patient is a 64-year-old gentleman presents emergency department with chief complaint of high potassium. Patient reports that he had blood work drawn on the 30/07 from [facility] and was called today and told that his potassium was 6.9 patient states that he otherwise feels fine reports that he was short of breath when he got to the emergency department because he is supposed to wear oxygen and did not bring a portable tank with him Related Data Allergies Allergy/AdvReac Type Severity Reaction Status Date / Time No Known Allergies Allergy Verified 07/16/25 14:00 Review of Systems 2 Review of Systems: A 10 system review of systems was completed on the patient and is negative except for what is stated in the HPI. Nursing and ancillary documentation was reviewed. [facility] Past Medical History Medical History History of closed fracture Fractured collarbone, fractured arm and fracture Clinic. Diverticulitis Enlarged prostate Screening for colon cancer Screening for lipid disorders Screening for cardiovascular condition Depression Chronic obstructive pulmonary disease, unspecified Episode of moderate major depression Essential (primary) hypertension Surgical History Surgical History History of removal of pigmented skin lesion H/O colonoscopy with polypectomy S/P peripheral artery angioplasty with stent placement S/P colon resection Family History Family History Mother Diabetes mellitus Family history of multiple sclerosis Hypertension Family history of diabetes mellitus in first degree relative Father Family history of primary malignant neoplasm of liver Patient's father is Sibling Hypertension Family history of chronic obstructive pulmonary disease Social History Social History Social History: He lives with Nayely Angeles his long term girlfreind .He has 2 children . He is disabled. He no longer drinks alcohol. code status full code Smoking packs per day: 0.5 Smoking cigarettes per day: 10.0 Years smoked: 40 Smoking pack-years: 20.00 Smoking status: Current every day smoker Second hand tobacco smoke exposure: Yes Alcohol intake: never Substance use: current Substance use type: marijuana Lack of Transportation: YES Lack of Food: Never True Current Housing: I Have Housing Concerned About Future Housing: No Difficulty Paying Gas/Electric Bills: No Difficulty Paying for Meds: No Currently Unemployed: No Education: Grade School Difficulty w/ Childcare or Family Care: No Spiritual care concerns: No Exam 2 Narrative: GENERAL: Well-appearing, well-nourished, and in no acute distress. HEAD: Normocephalic, atraumatic. EYES: PERRLA and EOMI. ENT: Nares clear, no rhinorrhea or epistaxis. Mucous membranes moist. NECK: Supple. CHEST: Clear to auscultation. No respiratory distress. HEART: Regular rate and rhythm. No murmur heard. Normal peripheral pulses. ABDOMEN: Soft, nontender, nondistended, normal active bowel sounds. EXTREMITIES: Normal range of motion. No edema. SKIN: Warm, dry, no rash. NEURO: No focal deficits. Alert and oriented x3. PSYCH: Normal mood and affect. Course Vital Signs Vital signs: Vital Signs Temperature 37.7 C H 07/16/25 14:00 Pulse Rate 124 H 07/16/25 14:00 Respiratory Rate 29 H 07/16/25 14:00 Blood Pressure 210/102 H 07/16/25 14:00 Pulse Oximetry 92 07/16/25 14:00 Oxygen Delivery Room Air 07/16/25 14:00 Temperature 37.7 C H 07/16/25 14:00 Pulse Rate 124 H 07/16/25 14:00 Respiratory Rate 29 H 07/16/25 14:00 Blood Pressure 210/102 H 07/16/25 14:00 Pulse Oximetry 92 07/16/25 14:00 Oxygen Delivery Room Air 07/16/25 14:00 Medical Decision Making [facility] Narrative Medical decision making narrative: Differential diagnosis includes electrolyte abnormality, renal failure, lab abnormality Patient is currently asymptomatic CBC was within normal limits CMP showed a potassium of 4.7. BUN was 22 creatinine was 1.43 Chest x-ray showed no focal infiltrate Vital Signs Vital Signs: Vital Signs Temperature 37.7 C H 07/16/25 14:00 Pulse Rate 124 H 07/16/25 14:00 Respiratory Rate 29 H 07/16/25 14:00 Blood Pressure 210/102 H 07/16/25 14:00 Pulse Oximetry 92 07/16/25 14:00 Oxygen Delivery Room Air 07/16/25 14:00 Temperature 37.7 C H 07/16/25 14:00 Pulse Rate 124 H 07/16/25 14:00 Respiratory Rate 29 H 07/16/25 14:00 Blood Pressure 210/102 H 07/16/25 14:00 Pulse Oximetry 92 07/16/25 14:00 Oxygen Delivery Room Air 07/16/25 14:00 Lab Data 07/16/25 14:18 07/16/25 14:18 Labs: Lab Results 07/16/25 Range/Units 14:18 WBC 8.1 (4.5-10.0) K/mm3 RBC 4.76 (4.6-6.20) M/mm3 Hgb 14.0 (14.0-18.0) g/dL Hct 44.1 (42.0-52.0) % MCV 92.6 (80-100) fl MCH 29.4 (26-34) pg MCHC 31.7 L (32-36) g/dl RDW 12.0 (11.5-14.5) % Plt Count 310 (150-375) k/mm3 MPV 10.1 (7.4-10.4) fl Immature Gran % (Auto) 0.2 (0-0.5) % Neut % (Auto) 72.0 (45.5-73.1) % Lymph % (Auto) 17.3 L (18.3-44.2) % Kingfisher % (Auto) 8.6 H (2.6-8.5) % Eos % (Auto) 1.2 (0-4.4) % Baso % (Auto) 0.7 (0.2-1.2) % Lymph # (Auto) 1.41 (0.9-3.2) K/mm3 Kingfisher # (Auto) 0.7 H (0.1-0.6) K/mm3 Eos # (Auto) 0.1 (0-0.3) K/mm3 Baso # (Auto) 0.1 (0.0-0.1) K/mm3 Abs Immat Gran (auto) 0.02 (0.00-0.031) K/mm3 Absolute Neuts (auto) 5.9 (1.3-6.7) K/mm3 Absolute Nucleated RBC 0.000 (0.0-0.012) K/mm3 Nucleated RBC % 0.0 (0.0-0.2) % Sodium 135 L (137-145) mmol/L Potassium 4.7 (3.4-5.0) mmol/L Chloride 97 L (98-107) mmol/L Carbon Dioxide 30 (22-30) mmol/L Anion Gap 8 (4-12) mmol/L BUN 22 H (9-20) mg/dL Creatinine 1.43 H (0.7-1.3) mg/dL Estim Creat Clear Calc 45 ml/min Estimated GFR 50 L (59 - ) Glucose 140 H (65-110) mg/dL Calcium 9.6 (8.4-10.2) mg/dL Total Bilirubin 0.3 (0.2-1.3) mg/dL AST 25 (17-59) U/L ALT 17 (6-50) U/L Alkaline Phosphatase 105 (38-126) U/L Total Protein 7.8 (6.3-8.2) g/dL Albumin 4.5 (3.5-5.1) g/dL Discharge Plan Discharge Clinical Impression: Abnormal laboratory test Patient Disposition: Home Condition: Stable Instructions: Antibiotic Form, Normal Exam (ED) Additional Instructions: Your re-evaluated after your labs that were done as an outpatient showed elevated potassium today your potassium is within normal limits Patient Language: Yakut Prescriptions: No Action Atrovent HFA 17 mcg/actuation HFA aerosol inhaler 2 puff inhalation Q4H Qty: 12.9 2RF guaifenesin 1,200 mg tablet extended release 12hr 1,200 mg PO BID Qty: 60 0RF doxycycline hyclate 100 mg capsule 100 mg PO BID Qty: 8 0RF prednisone 20 mg tablet 40 mg PO DAILY Qty: 2 0RF prednisone 10 mg tablets,dose pack See Taper PO DAILY 12 Days Qty: 42 0RF Taper: Prednisone Taper from 60 mg;12 days 60 mg DAILY for 2 Days and 0 Hour 50 mg DAILY for 2 Days and 0 Hour 40 mg DAILY for 2 Days and 0 Hour 30 mg DAILY for 2 Days and 0 Hour 20 mg DAILY for 2 Days and 0 Hour 10 mg DAILY for 2 Days and 0 Hour azithromycin [Zithromax Z-Brannon] 250 mg tablet See Rx Instructions .ROUTE .COMPLEX Qty: 6 0RF Rx Instructions: For 250 mg dose pack: take 500 mg today (day 1), then 250 mg for 4 days (days 2-5) (DME) [facility] Neb Kit-Adult Misc See Rx Instructions .Route Qty: 1 0RF Rx Instructions: As directed albuterol sulfate [Ventolin HFA] 90 mcg/actuation HFA aerosol inhaler 2 inh inhalation Q4H PRN (Reason: shortness of breath or wheezing) Qty: 18 3RF lisinopril 30 mg tablet 30 mg PO DAILY Qty: 90 1RF Follow-up/Referrals: Adrián Alicea MD [Primary Care Provider, Hospitalist] Time of Disposition: 15:57
[2025-07-16 14:55] LABS: Hematocrit 44.1 % (42.0-52.0); Hemoglobin 14.0 g/dL (14.0-18.0); Immature Granulocyte Percent A 0.2 % (0-0.5); Lymphocytes Absolute Auto 1.41 K/mm3 (0.9-3.2); Mean Corpuscular HGB Conc 31.7 g/dl (32-36); Mean Corpuscular Hemoglobin 29.4 pg (26-34); Mean Corpuscular Volume 92.6 fl (80-100); Nucleated Red Blood Cells Absolute Auto 0.000 K/mm3 (0.0-0.012); Nucleated Red Blood Cells Perc 0.0 % (0.0-0.2); Platelet Count Result 310 k/mm3 (150-375); Red Blood Count 4.76 M/mm3 (4.6-6.20); White Blood Count 8.1 K/mm3 (4.5-10.0)
[2025-07-16 15:00] VITALS: BP 168/88; PULSE 93; RESP 23; TEMP 36.6; O2SAT 97
[2025-07-16 15:06] LABS: Alanine Aminotransferase 17 U/L (6-50); Albumin Level 4.5 g/dL (3.5-5.1); Alkaline Phosphatase 105 U/L (38-126); Anion Gap 8 mmol/L (4-12); Aspartate Amino Transferase 25 U/L (17-59); Bilirubin,Total 0.3 mg/dL (0.2-1.3); Blood Urea Nitrogen 22 mg/dL (9-20); Calcium 9.6 mg/dL (8.4-10.2); Carbon Dioxide 30 mmol/L (22-30); Chloride 97 mmol/L (98-107); Estimated CRCL calculation 45 ml/min; Estimated Glomerular Filt Rate 50; Glucose 140 mg/dL (65-110); Potassium 4.7 mmol/L (3.4-5.0); Sodium 135 mmol/L (137-145); Total Protein 7.8 g/dL (6.3-8.2)
[2025-07-16 15:53] VITALS: BP 164/86; PULSE 97; RESP 24; TEMP 36.5; O2SAT 97
== END 2025-07-16 16:43 | disposition home or self-care (01) ==
PROVIDERS: Emergency Provider Emergency Medicine; PCP Internal Medicine
DX: E87.5 Hyperkalemia (principal); N40.0 Benign prostatic hyperplasia without lower urinary tract symptoms; I10 Essential (primary) hypertension; J44.9 Chronic obstructive pulmonary disease, unspecified; F17.210 Nicotine dependence, cigarettes, uncomplicated; Z95.820 Peripheral vascular angioplasty status with implants and grafts; Z86.0100 Personal history of colon polyps, unspecified; Z90.49 Acquired absence of other specified parts of digestive tract; Z79.899 Other long term (current) drug therapy; R00.0 Tachycardia, unspecified; R94.31 Abnormal electrocardiogram [ECG] [EKG]; I44.4 Left anterior fascicular block
CPT/HCPCS: 36415; 71046; 80053; 85025; 93005; 99284